=== PATIENT | female | born 1970 | race Hispanic/Latino ===

== ENCOUNTER → 2018-08-17 | Outpatient (CLI) | payer BC | END | disposition home or self-care (01) | LOC: SHCH 14:56 | PROVIDERS: ATTEND Internal Medicine Cardiovascular Disease | DX: I47.1 Supraventricular tachycardia (principal) | CPT/HCPCS: 93306 ==

== ENCOUNTER 2018-11-24 05:46 | Observation (INO) | payer BC ==
[2018-11-14 15:18] VITALS: BP 145/85
[2018-11-14 15:40] LABS: BASOPHILS % (AUTO) 0.3 % (0.0-5.0); EOSINOPHILS % (AUTO) 0.7 % (0.0-8.0); HEMATOCRIT 40.5 % (36-48); LYMPHOCYTES % (AUTO) 22.5 % (21.0-51.0); MEAN CORPUSCULAR HEMOGLOBIN 31.5 pg (27.0-33.0); MEAN CORPUSCULAR HGB CONC 34.1 g/dL (32.0-36.0); MEAN CORPUSCULAR VOLUME 92.4 fL (79-99); MONOCYTES % (AUTO) 7.1 % (3.0-13.0); NEUTROPHILS % (AUTO) 69.4 % (40.0-77.0); NUCLEATED RED BLOOD CELLS 0.1 % (0.0-0.19); PLATELET COUNT (AUTO) 238 K/uL (130-400); RED BLOOD CELL COUNT(AUTO) 4.39 MIL/uL (4.00-5.50); RED CELL DISTRIBUTION WIDTH 12.5 % (11.0-15.5); WHITE BLOOD COUNT (AUTO) 9.2 K/uL (4.8-10.8)
[2018-11-14 15:52] LABS: INR 0.92 (0.85-1.15); PARTIAL THROMBOPLASTIN TIME 26.5 SEC (26.3-35.5); PROTHROMBIN TIME 9.7 SEC (9.6-11.6)
--- NOTE | 2018-11-14 15:58 | NUR ---
PROCEDURE RESCHEDULED PATIENT UNAWARE THAT SHE WAS SUPPOSE TO HOLD CARDIZEM FOR 4 DAYS PRIOR TO PROCEDURE. PATIENT STATED THAT SHE TOOK CARDIZEM YESTERDAY 11/13/[address] BAUER MADE AWARE AND PROCEDURE WAS RESCHEDULED PER THAD.
[2018-11-22 12:11] LABS: CREATININE 0.8 mg/dL (0.5-1.5); POTASSIUM 3.9 mmol/L (3.5-5.1)
[2018-11-22 12:13] LABS: INR 0.94 (0.85-1.15); PARTIAL THROMBOPLASTIN TIME 27.5 SEC (26.3-35.5); PROTHROMBIN TIME 9.9 SEC (9.6-11.6)
[2018-11-22 12:15] LABS: BASOPHILS % (AUTO) 0.3 % (0.0-5.0); EOSINOPHILS % (AUTO) 0.5 % (0.0-8.0); HEMATOCRIT 40.7 % (36-48); LYMPHOCYTES % (AUTO) 22.4 % (21.0-51.0); MEAN CORPUSCULAR HEMOGLOBIN 31.7 pg (27.0-33.0); MEAN CORPUSCULAR HGB CONC 34.2 g/dL (32.0-36.0); MEAN CORPUSCULAR VOLUME 92.7 fL (79-99); MONOCYTES % (AUTO) 4.3 % (3.0-13.0); NEUTROPHILS % (AUTO) 72.5 % (40.0-77.0); PLATELET COUNT (AUTO) 226 K/uL (130-400); RED BLOOD CELL COUNT(AUTO) 4.39 MIL/uL (4.00-5.50); WHITE BLOOD COUNT (AUTO) 7.1 K/uL (4.8-10.8)
[2018-11-22 12:20] VITALS: BP 155/86
[~2018-11-24] VITALS: Ht 162.6 cm; Wt 90.3 kg
[2018-11-24] VITALS (12 sets, daily range): BP systolic 114–147; BP diastolic 66–99
[~2018-11-24 05:46] MED LIST: DILT120C92 PO; SODIUM CHLORIDE 0.9% 1000ML 1,000 ML IV SCH; vitamin D3
[2018-11-24] MEDS ORDERED: SODIUM CHLORIDE 0.9% 1000ML 1,000 ML IV ONE (06:05)
[2018-11-24] MEDS ORDERED: HEPARIN SODIUM 1000UNIT/ML 10ML VIAL ONE (07:27)
[2018-11-24] MEDS ORDERED: LIDOCAINE HCL 2% 20ML ONE ×2 (07:27→07:50)
[2018-11-24] MEDS ORDERED: ISOPROTERENOL HCL 0.2 MG/ML AMP/VIAL/BAG ONE ×2 (08:00→09:38)
[2018-11-24] MEDS ORDERED: MEPERIDINE-PF 25 MG/ML SYG ONE ×2 (08:07→08:29)
[2018-11-24] MEDS ORDERED: MIDAZOLAM HCL 1 MG/ML 2ML VIAL ONE ×2 (08:07→08:29)
[2018-11-24] MEDS ORDERED: ADENOSINE 3 MG/ML 2ML VIAL IV ONE ×4 (08:10→09:57)
[2018-11-24] MEDS ORDERED: ACETAMINOPHEN 325 MG TAB PO PRN (11:15)
[2018-11-24] MEDS ORDERED: ACETAMINOPHEN-CODEINE 300/30MG TAB PO PRN (11:15)
--- NOTE | 2018-11-24 11:20 | NUR ---
ARRIVAL PT RECEIVED FROM [facility]IC[facility] VIA BED. S/P CARDIAC ABLATION-SUCCESSFUL. BILATERAL GROIN DSG DRY & INTACT. BILATERAL PUNCTURE SITE SOFT, NON-TENDER. NO BLEEDING, NO HEMATOMA. (+) BILATERAL PEDAL PULSES. BLE PINK & WARM TO TOUCH. PT TO MAINTAIN BR X 4 HRS. DENIES INCISIONAL PAIN. A/O X 3. NO SOB. NO DISTRESS NOTED. DENIES N/V. ORIENTED TO . BED @ LOWEST LEVEL. SIDE RAILS UP X 4. INSTRUCTED TO CALL FOR ASSISTANCE. CALL INESSA W/IN REACH.
--- NOTE | 2018-11-24 14:30 | NUR ---
STATUS 4 HR BEDREST COMPLETE. BILATERAL GROIN DSG DRY & INTACT. NO BLEEDING, NO HEMATOMA NOTED. (+) BILATERAL PEDAL PULSES. BLE PINK & WARM TO TOUCH. DENIES INCISIONAL PAIN. DENIES CHEST PAIN AND /OR PALPITATIONS. PT ASSISTED OOB TO CHAIR. TOLERATED WELL. DENIES LIGHT HEADEDNESS AND/OR DIZZINESS. INSTRUCTED TO CALL FOR ASSISTANCE. CALL INESSA W/IN REACH.
[2018-11-25 03:00] VITALS: BP 116/71
[2018-11-25 07:00] VITALS: BP 129/98
--- NOTE | 2018-11-25 07:30 | NUR ---
AM ASSESSMENT PT LAYING IN BED, WATCHING TV. A/O X 3. NO SOB. NO DISTRESS NOTED. DENIES CHEST PAIN OR DISCOMFORT. DENIES PALPITATIONS. DENIES INCISIONAL PAIN. TELE: SR 70-80s. DENIES N/V AND/OR DIARRHEA. BILATERAL GROIN SITES SOFT, NON-TENDER. BILATERAL DSG DRY & INTACT. NO BLEEDING, NO HEMATOMA NOTED. (+) BILATERAL PEDAL PULSES. BLE PINK & WARM TO TOUCH. UP AD MELIDA. INSTRUCTED TO CALL FOR ASSISTANCE. CALL INESSA W/IN REACH.
--- NOTE | 2018-11-25 10:05 | NUR ---
DISCHARGE VERBAL & WRITTEN DISCHARGE INSTRUCTIONS REVIEWED & GIVEN TO PT. QUESTIONS ENCOURAGED & CLARIFIED. PROPER CARE & ACTIVITY AFTER CARDIAC ABLATION REVIEWED. NO NEW PRESCRIBED MEDICATIONS. PT TO STOP TAKING DILTIAZEM, PT AWARE. TELE BRANDI & IV DISCONTINUED EARLIER. PT & SON TO GATHER PERSONAL BELONGINGS. WILL NOTIFY STAFF WHEN READY TO BE TAKEN TO PRIVATE VEHICLE.
--- NOTE | 2018-11-25 10:10 | NUR ---
DISCHARGE PT AMBULATED TO PRIVATE VEHICLE ACCOMPANIED BY MYSELF, Francisca DUKES RN, AND SON. TOLERATED AMBULATION WELL, NO DISTRESS NOTED.
== END 2018-11-25 10:10 | disposition home or self-care (01) ==
LOC: DAH 05:46 → DAHIP 05:47 → 2DH 11:26
PROVIDERS: ADMIT Internal Medicine; ATTEND Internal Medicine
DX: I47.1 Supraventricular tachycardia (principal); E03.9 Hypothyroidism, unspecified; F17.210 Nicotine dependence, cigarettes, uncomplicated; Z90.710 Acquired absence of both cervix and uterus; Z79.899 Other long term (current) drug therapy; Z82.49 Family history of ischemic heart disease and other diseases of the circulatory system; Z79.01 Long term (current) use of anticoagulants
CPT/HCPCS: 36415 ×2; 80048 ×2; 84703 ×2; 85025 ×2; 85610 ×2; 85730 ×2; 93005 ×2; 93613; 93621; 93623; 93653; A4649; C1730 ×5; C1732; C1894 ×5; G0378 ×28; J0153 ×4; J1644 ×2; J2175; J2250; J3490 ×3; J7030; 99156; 99157

== ENCOUNTER 2024-05-06 03:47 | Emergency (ER) | payer BC ==
[~2024-05-06] VITALS: Ht 160 cm; Wt 77.1 kg
[~2024-05-06 03:47] MED LIST changes: +DILT120C78 PO; -DILT120C92 PO; -SODIUM CHLORIDE 0.9% 1000ML 1,000 ML IV SCH
--- NOTE | 2024-05-06 03:52 | NUR ---
UA CUP PROVIDED
[2024-05-06 04:11] LABS: BASOPHILS # (AUTO) 0.03 K/uL (0.00-0.20); BASOPHILS % (AUTO) 0.3 % (0.0-5.0); EOSINOPHILS # (AUTO) 0.11 K/uL (0.00-0.70); EOSINOPHILS % (AUTO) 1.1 % (0.0-8.0); HEMATOCRIT 42.4 % (36-48); IMMATURE GRANULOCYTE ABSOLUTE 0.05 K/uL (0-1); LYMPHOCYTES # (AUTO) 1.9 K/uL (1.0-4.8); LYMPHOCYTES % (AUTO) 18.7 % (21.0-51.0); MEAN CORPUSCULAR HEMOGLOBIN 31.4 pg (27.0-33.0); MEAN CORPUSCULAR VOLUME 92.6 fL (79-99); MONOCYTES # (AUTO) 0.6 K/uL (0.1-1.0); MONOCYTES % (AUTO) 6.3 % (3.0-13.0); NEUTROPHILS # (AUTO) 7.3 K/uL (1.8-7.7); NEUTROPHILS % (AUTO) 73.1 % (40.0-77.0); PLATELET COUNT (AUTO) 293 K/uL (130-400); RED BLOOD CELL COUNT(AUTO) 4.58 MIL/uL (4.00-5.50); RED CELL DISTRIBUTION WIDTH 11.8 % (11.0-15.5)
--- NOTE | 2024-05-06 04:13 | ERN ---
General Chief Complaint: Flank Pain Stated Complaint: LEFT FLANK PAIN Time Seen by MD: 03:50 History of Present Illness Initial Comments Mrs Patricia is a pleasant 54-year-old female who comes in with a chief complaint of left-sided flank pain. Patient reports that she has a history of kidney stones. Patient reports his pain is moderate to severe. She reports the pain that radiates to her left groin. Patient denies any fevers chills lightheadedness dizziness double vision blurry vision chest pain. Patient reports he does have nausea and vomiting. Allergies: Coded Allergies: No Known Drug Allergies (Verified Allergy, Unknown, 11/14/18) Home Meds Reported Medications [vitamin D3] No Conflict Check 11/14/18 Diltiazem HCl (Diltiazem ER) 120 Mg Capsule.er, 120 MG PO DAILY, CAP 11/14/18 Past Medical History Past Medical History: Kidney Stone Past Surgical History: Appendectomy, Hysterectomy ROS Dictation Constitutional: Negative for fever,chills, and weight loss Eyes: Negative for injury, pain,redness, and discharge ENT: Negative for injury,pain or swelling Cardiovascular: Negative for chest pain, palpitations, and edema Respiratory: Negative for shortness of breath, cough, and wheezing, Abdomen/GI: Positive for nausea vomiting and abdominal pain Back: Negative for injury and pain : Negative for injury, bleeding and discharge MS/Extremity: Negative for injury and deformity Skin: Negative for rash, and discoloration Neuro: Negative for headache, weakness, numbness, tingling, and seizure Psych: Negative for suicide ideation, homicidal ideation, and hallucinations Physical Exam Physical Exam Dictation General: Uncomfortable Head/Face: Normocephalic, atraumatic Eyes: PERRL, EOMI, vision at baseline ENT: oral cavity clear Neck: Trachea midline, supple Cardiovascular: RRR, normal S1/S2, No MRGs, no JVD Respiratory: CTAB, no respiratory distress, No rales or wheezes Abdomen: Pain with palpation in the left lower quadrant. Skin: Warm, dry, normal turgor, no rash MS/Extremity: Pulses equal, no cyanosis, neurovascular intact, FROM Neuro: COAx4, GCS 15 Results Laboratory and Microbiology Lab and Micro Result Laboratory Tests Test 05/06/24 04:03 05/06/24 05:20 White Blood Count 10.0 K/uL (4.8-10.8) Red Blood Count 4.58 MIL/uL (4.00-5.50) Hemoglobin 14.4 g/dL (12.0-16.0) Hematocrit 42.4 % (36-48) Mean Corpuscular Volume 92.6 fL (79-99) Mean Corpuscular Hemoglobin 31.4 pg (27.0-33.0) Mean Corpuscular Hemoglobin Concent 34.0 g/dL (32.0-36.0) Red Cell Distribution Width 11.8 % (11.0-15.5) Platelet Count 293 K/uL (130-400) Mean Platelet Volume 10.9 fL (7.5-10.5) H Immature Granulocyte % (Auto) 0.5 % (0-1) Neutrophils (%) (Auto) 73.1 % (40.0-77.0) Lymphocytes (%) (Auto) 18.7 % (21.0-51.0) L Monocytes (%) (Auto) 6.3 % (3.0-13.0) Eosinophils (%) (Auto) 1.1 % (0.0-8.0) Basophils (%) (Auto) 0.3 % (0.0-5.0) Neutrophils # (Auto) 7.3 K/uL (1.8-7.7) Lymphocytes # (Auto) 1.9 K/uL (1.0-4.8) Monocytes # (Auto) 0.6 K/uL (0.1-1.0) Eosinophils # (Auto) 0.11 K/uL (0.00-0.70) Basophils # (Auto) 0.03 K/uL (0.00-0.20) Absolute Immature Granulocyte (auto 0.05 K/uL (0-1) Nucleated Red Blood Cells 0.0 % (0.0-0.19) Sodium Level 140 mmol/L (136-145) Potassium Level 4.2 mmol/L (3.5-5.1) Chloride Level 105 mmol/L (101-111) Carbon Dioxide Level 26 mmol/L (21-32) Blood Urea Nitrogen 14 mg/dL (7-18) Creatinine 1.1 mg/dL (0.5-1.0) H Glomerular Filtration Rate Calc 60 mL/min (>90) Random Glucose 109 mg/dL (70-105) H Total Calcium 8.9 mg/dL (8.5-10.1) Amylase Level 62 U/L (25-115) Lipase 91 U/L (16-77) H Urine Color COLORLESS (YELLOW) Urine Appearance CLEAR (CLEAR) Urine pH 6.5 (5.0-8.0) Urine Specific [place] 1.028 (1.001-1.031) Urine Protein NEGATIVE mg/dL (NEGATIVE) Urine Glucose (UA) NEGATIVE mg/dL (NEGATIVE) Urine Ketones NEGATIVE mg/dL (NEGATIVE) Urine Occult Blood LARGE (NEGATIVE) H Urine Nitrate NEGATIVE (NEGATIVE) Urine Bilirubin NEGATIVE mg/dL (NEGATIVE) Urine Urobilinogen 0.2 mg/dL (0.2-1.0) Urine Leukocyte Esterase NEGATIVE Sandra/uL Urine RBC TNTC /HPF (0-1) H Urine WBC 11-25 /HPF (0-1) H Urine Bacteria RARE /HPF (None Seen) MDM Patient appears to have a nonobstructing 10 mm stone in the right and a 5 x 3 mm stone in the left UPJ. Patient does have some moderate left-sided hydronephrosis. Urine does not show any action MDM: Differential diagnosis: Renal calculus Rationale: Tests considered and ordered secondary to shared decision making include: Previous outside records reviewed: Old ER visits. Risk of complication and/or morbidity or mortality of patient management: None Medications-Per medication reconciliation Need for hospitalization: Patient does not meet criteria for hospitalization. Need for emergency major/minor surgery: No There are no social concerns with this patient. Prescription drug management Prescriptions will include symptomatic care Patient's prior external medical records from other ER visits were reviewed by me as indicated. Prior testing and results from previous visits were reviewed. Prior tests were taken into account with medical decision making and resource utilization, independent historian/historians were used to obtain complete medical history. I independently interpreted the test that were performed, results were reviewed by me and considered findings on radiology if ordered. Medical management and examination interpretation discussions were had by me with other qualified healthcare professionals as indicated for the patient's care. ED Course Orders Procedure Category Date Status Time Cbc With Differential LAB 05/06/24 Complete 03:53 Basic Metabolic Panel LAB 05/06/24 Complete 03:53 Urinalysis Profile LAB 05/06/24 Complete 03:53 Amylase LAB 05/06/24 Complete 04:08 Ct Abdomen/Pelvis CT 05/06/24 Taken W/Contrast 04:08 Lactated Ringers PHA 05/06/24 Complete 1000ml (Lactated 04:30 Morphine 4mg Syg PHA 05/06/24 Complete (Morphine 4mg Syg) 04:30 Ondansetron 4mg Inj PHA 05/06/24 Complete (Zofran 4mg Inj) 04:30 Lipase LAB 05/06/24 Complete 04:08 Iohexol (Omnipaque) PHA 05/06/24 Complete 04:41 0.9%Nacl 1000ml (Ns PHA 05/06/24 Complete 1000ml) 06:00 0.9%Nacl 1000ml (Ns PHA 05/06/24 Complete 1000ml) 05:50 Culture Urine RUBI 05/06/24 In Process 05:53 Current Medications Medications (Trade) Dose Ordered Sig/Xenia Route PRN Reason Start Time Stop Time Status Last Admin Dose Admin Iohexol (Omnipaque) 75 ml STK-MED ONCE IV 05/06/24 04:41 05/06/24 04:46 DC Lactated Ringer's 1,000 ml @ 0 mls/hr ONCE ONCE IV 05/06/24 04:30 05/06/24 04:31 DC 05/06/24 04:30 Morphine Sulfate (morPHINE 4MG SYG) 4 mg ONCE ONCE IVP 05/06/24 04:30 05/06/24 04:31 DC 05/06/24 04:29 Ondansetron HCl (zoFRAN 4MG INJ) 4 mg ONCE ONCE IVP 05/06/24 04:30 05/06/24 04:31 DC 05/06/24 04:29 Sodium Chloride 1,000 ml @ 0 mls/hr Q0M ONCE IV 05/06/24 06:00 05/06/24 06:01 DC 05/06/24 05:55 Sodium Chloride 1,000 ml @ As Directed STK-MED ONCE IV 05/06/24 05:50 05/06/24 05:51 DC Vital Signs Date Time Temp Pulse Resp B/P (MAP) Pulse Ox O2 Delivery O2 Flow Rate FiO2 05/06/24 05:55 75 18 156/86 98 Room Air* 0 21 05/06/24 04:33 97.3 79 20 179/95 97 Room Air* 0 21 05/06/24 03:48 97.2 101 20 190/116 100 Room Air DX & DISP Disposition: Discharge Departure Impression: Primary Impression: Renal stone Condition: Stable Scripts Tramadol Hcl (Tramadol HCl) 50 Mg Tablet 50 MG PO Q6H, #28 TAB Prov: DALTON SEGURA MD 05/06/24 Tamsulosin HCl (Flomax) 0.4 Mg Cap.er.24h 0.4 MG PO DAILY for 30 Days, #[address] CAPSULE.DR Prov: DALTON SEGURA MD 05/06/24 Additional Instructions: Please drink plenty of fluids anywhere between 1-2 L a day to help expel your stone. Please take your medications as prescribed. Please follow up with the primary care physician in the next 1-7 days for continuance of care. If pain worsens please come back to emergency department Referrals: BENITA COLLINS (PCP) DALTON SEGURA MD May 06, 2024 04:13
[2024-05-06] MEDS: morPHINE 4 MG SYG IVP ONE (04:29)
[2024-05-06] MEDS: ondanSETRON 4MG INJ IVP ONE (04:29)
[2024-05-06] MEDS: LACTATED RINGERS 1000ML 1,000 ML IV ONE (04:30)
[2024-05-06 04:37] LABS: CREATININE 1.1 mg/dL (0.5-1.0); POTASSIUM 4.2 mmol/L (3.5-5.1)
[2024-05-06] MEDS ORDERED: IOHEXOL-350 75 ML VIAL IV ONE (04:41)
[2024-05-06 05:16] LABS: AMYLASE 62 U/L (25-115)
[2024-05-06 05:32] LABS: APPEARANCE,URINE CLEAR (CLEAR); BILIRUBIN,URINE NEGATIVE (NEGATIVE); COLOR,URINE COLORLESS (YELLOW); GLUCOSE, URINE (UA) NEGATIVE (NEGATIVE); KETONES,URINE NEGATIVE (NEGATIVE); LEUKOCYTE ESTERASE ,URINE NEGATIVE Leu/uL (NEGATIVE); NITRATE,URINE NEGATIVE (NEGATIVE); OCCULT BLOOD,URINE LARGE (NEGATIVE); PH,URINE 6.5 (5.0-8.0); PROTEIN,URINE NEGATIVE (NEGATIVE); UROBILINOGEN,URINE 0.2 mg/dL (0.2-1.0)
[2024-05-06 05:36] LABS: ADD UA MICROSCOPIC YES
[2024-05-06 05:52] LABS: BACTERIA,URINE RARE /HPF (None Seen); MUCUS,URINE RARE LPF (None Seen); RBC,URINE TNTC /HPF (0-1)
[2024-05-06] MEDS: 0.9%NACL 1000ML 1,000 ML IV ONE ×2 (05:55)
[2024-05-06] MEDS ORDERED: TRAM50TA4 PO (06:23)
[2024-05-06] MEDS ORDERED: TAMS-1 PO (06:23)
[2024-05-06] MEDS: tamSULOsin HCL 0.4 MG CAP.ER.24H PO ONE (06:24)
[2024-05-06 07:00] VITALS: BP 142/80; PULSE 72; RESP 18; TEMP 97.6; O2SAT 100
--- NOTE | 2024-05-06 08:24 | HMCIMG ---
CT ABDOMEN/PELVIS W/CONTRAST REASON: Abdominal Pain COMPARISON: None. TECHNIQUE: Images are obtained from lung bases to symphysis pubis following IV contrast, 75 cc Omnipaque 350. FINDINGS: Lung bases are clear. There are no focal liver lesions. The liver does not appear enlarged.. Spleen and pancreas appear unremarkable. The gallbladder appears normal as well. There is a 5 mm stone in the proximal left ureter just past the ureteropelvic junction. There is mild to moderate left hydronephrosis. There is an additional 3 mm nonobstructing stone in the lower pole calyx on the left, there is a 12 mm stone in a middle pole calyx on the right. There is no right-sided hydronephrosis. There is no mass in either kidney. Stomach is distended with air and fluid. There is mild fluid distention of large and small bowel loops, present throughout, no evidence of transition zone. Findings are nonspecific, often a reflection of gastroenteritis or mild ileus. There is minimal sigmoid diverticulosis without evidence of diverticulitis. Bowel loops appear otherwise unremarkable. Bowel loops appear unremarkable. The appendix was not separately identified. There is no evidence of free fluid or intraperitoneal air. There are no focal fluid collections. Aorta and retroperitoneum appear normal as do pelvic soft tissue structures. The anterior abdominal wall is intact. Osseous structures appear unremarkable. IMPRESSION: 1. 5 mm stone in the proximal left ureter with mild to moderate left hydronephrosis. 2. Additional nonobstructing stones in each kidney, largest 12 mm lower pole calyx of the right kidney. 3. Mild nonspecific fluid-filled prominence of large and small bowel loops which may represent gastroenteritis or mild ileus. CT was performed with one or more following dose reduction techniques: automated exposure control, adjustment of the mA and kv according to patient's size, or use of a iterative reconstruction technique.
== END 2024-05-06 07:02 | disposition home or self-care (01) ==
LOC: EDH 03:47
DX: N13.2 Hydronephrosis with renal and ureteral calculous obstruction (principal); Z79.899 Other long term (current) drug therapy; Z90.49 Acquired absence of other specified parts of digestive tract; Z90.710 Acquired absence of both cervix and uterus
CPT/HCPCS: 99284; 74177; 96374; 96375; 82150; 80048; 83690; 85025; 87086; 81001; 36415; J7120; J7030; J2405; J2270; Q9967

== ENCOUNTER 2024-10-06 17:31 | Inpatient (IN) | payer BC, OTHER ==
[~2024-10-06] VITALS: Ht 157.5 cm; Wt 70.3 kg
[~2024-10-06 17:31] MED LIST changes: +TAMS-55 PO; +TRAM50TA4 PO
[2024-10-06 18:50] LABS: BASOPHILS # (AUTO) 0.04 K/uL (0.00-0.20); BASOPHILS % (AUTO) 0.3 % (0.0-5.0); EOSINOPHILS # (AUTO) 0.04 K/uL (0.00-0.70); EOSINOPHILS % (AUTO) 0.3 % (0.0-8.0); HEMATOCRIT 42.4 % (36-48); IMMATURE GRANULOCYTE ABSOLUTE 0.04 K/uL (0-1); LYMPHOCYTES # (AUTO) 1.4 K/uL (1.0-4.8); LYMPHOCYTES % (AUTO) 9.4 % (21.0-51.0); MEAN CORPUSCULAR HEMOGLOBIN 31.4 pg (27.0-33.0); MEAN CORPUSCULAR HGB CONC 33.7 g/dL (32.0-36.0); MONOCYTES # (AUTO) 0.7 K/uL (0.1-1.0); MONOCYTES % (AUTO) 4.8 % (3.0-13.0); NEUTROPHILS # (AUTO) 12.1 K/uL (1.8-7.7); NEUTROPHILS % (AUTO) 84.9 % (40.0-77.0); PLATELET COUNT (AUTO) 281 K/uL (130-400); RED BLOOD CELL COUNT(AUTO) 4.56 MIL/uL (4.00-5.50); RED CELL DISTRIBUTION WIDTH 11.8 % (11.0-15.5); WHITE BLOOD COUNT (AUTO) 14.3 K/uL (4.8-10.8)
[2024-10-06 18:51] LABS: APPEARANCE,URINE CLEAR (CLEAR); BILIRUBIN,URINE NEGATIVE (NEGATIVE); COLOR,URINE LIGHT-YELLOW (YELLOW); GLUCOSE, URINE (UA) NEGATIVE (NEGATIVE); KETONES,URINE NEGATIVE (NEGATIVE); LEUKOCYTE ESTERASE ,URINE NEGATIVE Leu/uL (NEGATIVE); NITRATE,URINE NEGATIVE (NEGATIVE); OCCULT BLOOD,URINE LARGE (NEGATIVE); PH,URINE 5.5 (5.0-8.0); PROTEIN,URINE NEGATIVE (NEGATIVE); UROBILINOGEN,URINE 0.2 mg/dL (0.2-1.0)
[2024-10-06 18:53] LABS: ADD UA MICROSCOPIC YES
[2024-10-06 19:01] LABS: CREATININE 1.1 mg/dL (0.5-1.0); POTASSIUM 3.5 mmol/L (3.5-5.1)
[2024-10-06] MEDS: ketOROlac 15MG/ML VIAL (15MG/ML) IV STA (19:02)
[2024-10-06] MEDS: 0.9%NACL 1000ML 1,000 ML IV STA (19:02)
[2024-10-06] MEDS: ondanSETRON 4MG INJ IVP STA (19:02)
[2024-10-06 19:11] LABS: BACTERIA,URINE RARE /HPF (None Seen); MUCUS,URINE RARE LPF (None Seen); SQUAMOUS EPITHELIAL CELL,UR RARE /HPF (0-2)
--- NOTE | 2024-10-06 19:15 | NUR ---
PT WHEELED TO CT VIA STRETCHER
--- NOTE | 2024-10-06 19:36 | NUR ---
BACK FROM CT
--- NOTE | 2024-10-06 19:42 | HMCIMG ---
CT ABDOMEN PELVIS WITHOUT CONTRAST Clinical Information: LEFT FLANK PAIN, HX OF KIDNEY STONES Comparison: CT Dose Index (CTDI): 28.40 mGy Dose Length Product (DLP): 1536.00 total mGy-cm PROTOCOL: Routine noncontrast helical scanning of the abdomen and pelvis was performed at 5mm collimation. Findings: There is a left ureterovesical junction calculus measuring 7 mm causing [id number] hydroureteronephrosis. In addition, there is a second smaller calculus of the left distal ureter measuring approximately 3 mm. The right kidney lower pole collecting system shows a nonobstructing calculus measuring 13 mm. The lung bases are clear. The stomach is unremarkable. It shows no wall thickening. No gross ulceration is seen. It is not overly distended. There are no surrounding inflammatory changes. No wall lesions are identified to suggest cancer. The spleen is unremarkable. It is not enlarged. The pancreas shows normal anatomy. It is not fatty replaced. It shows no lesions. The pancreatic duct is not dilated. The gallbladder is unremarkable. It shows no cholelithiasis. The gallbladder wall is normal in thickness. There is no pericholecystic fluid. The is no acute or chronic inflammation noted. The adrenal glands are unremarkable. There is no enlargement. No lesions are noted. The liver is unremarkable. It shows no focal masses. The appendix is unremarkable. It shows no evidence of inflammation. No appendicolith is seen. The small bowel is unremarkable. There is no evidence of dilatation to suggest obstruction. No evidence of adynamic ileus is seen. There is no small bowel wall thickening to suggest enteritis. The colon is unremarkable. The urinary bladder is unremarkable. There is no wall thickening to suggest tumor or inflammation. There are no intraluminal calculi. There are no diverticula. There is no evidence of chronic bladder outlet obstruction. There is no evidence of urinary bladder distention to suggest urinary retention. The other pelvic structures are unremarkable. The bony and vascular structures are unremarkable for the patient's age. IMPRESSION: Urinary tract calculus causing obstruction. This study was performed using dose reduction techniques to include automated exposure control and/or adjustment of the mA and/or kV according to patient size.
--- NOTE | 2024-10-06 20:30 | ERN ---
ED Note History of Present Illness Stated Complaint: LEFT FLANK PAIN Chief Complaint: Flank Pain Time Seen by MD: 17:32 Time Seen by Midlevel: 17:36 Dictation: 54-YEAR-OLD FEMALE WITH A HISTORY OF KIDNEY STONES COMING IN COMPLAINING OF LEFT FLANK PAIN RADIATING TO HER LEFT LOWER QUADRANT ALL THE WAY IT ANTERIOR VAGINAL AREA. PATIENT STATES SHE KNOWS TRICKLING URINE NOT HER USUAL OUTPUT, BY HOWEVER DENIES ANY HEMATURIA. DENIES HAVING ANY FEVERS, NAUSEA VOMITING DIARRHEA. Allergies: Coded Allergies: No Known Drug Allergies (Verified Allergy, Unknown, 11/14/18) Home Meds Active Scripts Tramadol Hcl (Tramadol HCl) 50 Mg Tablet, 50 MG PO Q6H, #28 TAB Prov:DALTON SEGURA MD 05/06/24 Tamsulosin HCl (Flomax) 0.4 Mg Cap.er.24h, 0.4 MG PO DAILY for 30 Days, #30 CAPSULE.DR Prov:DALTON SEGURA MD 05/06/24 Reported Medications Cholecalciferol (Vitamin D3) (Vitamin D3) 125 Mcg (5000 Unit) Capsule, 1 CAP PO DAILY for 30 Days, #30 CAP 0 Refills 10/06/24 Levothyroxine Sodium (Levothyroxine) 50 Mcg Capsule, 1 CAP PO DAILY for 30 Days, #30 CAP 0 Refills 10/06/24 [vitamin D3] No Conflict Check 11/14/18 Diltiazem HCl (Diltiazem ER) 120 Mg Capsule.er, 120 MG PO DAILY, CAP 11/14/18 Past Medical History Past Medical History: Hypothyroid, Kidney Stone Additional Past Medical Hx: HYDRONEPHROSIS Surgical History: Appendectomy, Hysterectomy Review of System Dictation CONSTITUTIONAL: NEGATIVE FOR FEVER,CHILLS, AND WEIGHT LOSS EYES: NEGATIVE FOR INJURY, PAIN,REDNESS, AND DISCHARGE ENT: NEGATIVE FOR INJURY,PAIN OR SWELLING CARDIOVASCULAR: NEGATIVE FOR CHEST PAIN, PALPITATIONS, AND EDEMA RESPIRATORY: NEGATIVE FOR SHORTNESS OF BREATH, COUGH, AND WHEEZING, ABDOMEN/GI: NEGATIVE FOR ABDOMINAL PAIN, NAUSEA, VOMITING, DIARRHEA, AND CONSTIPATION BACK: NEGATIVE FOR INJURY AND PAIN : NEGATIVE FOR INJURY, BLEEDING AND DISCHARGE, COMPLAINING OF LEFT FLANK PAIN AND DECREASED URINE OUTPUT MS/EXTREMITY: NEGATIVE FOR INJURY AND DEFORMITY SKIN: NEGATIVE FOR RASH, AND DISCOLORATION NEURO: NEGATIVE FOR HEADACHE, WEAKNESS, NUMBNESS, TINGLING, AND SEIZURE PSYCH: NEGATIVE FOR SUICIDE IDEATION, HOMICIDAL IDEATION, AND HALLUCINATIONS Review of Systems: was completed Initial Vital Sign VS Vital Signs Date Time Temp Pulse Resp B/P (MAP) Pulse Ox O2 Delivery O2 Flow Rate FiO2 10/06/24 17:31 97.5 83 20 158/104 100 Room Air 0 10/06/24 19:13 21 Physical Exam Dictation GENERAL: AWAKE, ALERT, NAD HEAD/FACE: NORMOCEPHALIC, ATRAUMATIC EYES: PERRL, EOMI, VISION AT BASELINE ENT: ORAL CAVITY CLEAR, TMS CLEAR, NO SIGNS OF INFECTION NECK: TRACHEA MIDLINE, SUPPLE, NO NUCHAL RIGIDITY CARDIOVASCULAR: RRR, NORMAL S1/S2, NO MRGS, NO JVD RESPIRATORY: CTAB, NO RESPIRATORY DISTRESS, NO RALES OR WHEEZES ABDOMEN: SOFT, NON-TENDER, NON-DISTENDED, NORMAL BOWEL SOUNDS, NO GUARDING OR REBOUND. LEFT CVA TENDERNESS SKIN: WARM, DRY, NORMAL TURGOR, NO RASH MS/EXTREMITY: PULSES EQUAL, NO CYANOSIS, NEUROVASCULAR INTACT, FROM NEURO: COAX4, GCS 15, STRENGTH 5/5, CN 2-12 INTACT, NORMAL CEREBELLAR EXAM, NORMAL GAIT, PSYCH: NORMAL BEHAVIOR, MOOD, AND AFFECT NORMAL Results (Laboratory/Radiology) Laboratory/Radiology Laboratory Tests Test 10/06/24 18:30 10/06/24 18:32 White Blood Count 14.3 K/uL (4.8-10.8) H Red Blood Count 4.56 MIL/uL (4.00-5.50) Hemoglobin 14.3 g/dL (12.0-16.0) Hematocrit 42.4 % (36-48) Mean Corpuscular Volume 93.0 fL (79-99) Mean Corpuscular Hemoglobin 31.4 pg (27.0-33.0) Mean Corpuscular Hemoglobin Concent 33.7 g/dL (32.0-36.0) Red Cell Distribution Width 11.8 % (11.0-15.5) Platelet Count 281 K/uL (130-400) Mean Platelet Volume 11.2 fL (7.5-10.5) H Immature Granulocyte % (Auto) 0.3 % (0-1) Neutrophils (%) (Auto) 84.9 % (40.0-77.0) H Lymphocytes (%) (Auto) 9.4 % (21.0-51.0) L Monocytes (%) (Auto) 4.8 % (3.0-13.0) Eosinophils (%) (Auto) 0.3 % (0.0-8.0) Basophils (%) (Auto) 0.3 % (0.0-5.0) Neutrophils # (Auto) 12.1 K/uL (1.8-7.7) H Lymphocytes # (Auto) 1.4 K/uL (1.0-4.8) Monocytes # (Auto) 0.7 K/uL (0.1-1.0) Eosinophils # (Auto) 0.04 K/uL (0.00-0.70) Basophils # (Auto) 0.04 K/uL (0.00-0.20) Absolute Immature Granulocyte (auto 0.04 K/uL (0-1) Nucleated Red Blood Cells 0.0 % (0.0-0.19) White Cell Morphology Comment See comments Sodium Level 136 mmol/L (136-145) Potassium Level 3.5 mmol/L (3.5-5.1) Chloride Level 100 mmol/L (101-111) L Carbon Dioxide Level 29 mmol/L (21-32) Blood Urea Nitrogen 16 mg/dL (7-18) Creatinine 1.1 mg/dL (0.5-1.0) H Glomerular Filtration Rate Calc 60 mL/min (>90) Random Glucose 90 mg/dL (70-105) Total Calcium 9.1 mg/dL (8.5-10.1) Urine Color LIGHT-YELLOW (YELLOW) Urine Appearance CLEAR (CLEAR) Urine pH 5.5 (5.0-8.0) Urine Specific [place] 1.006 (1.001-1.031) Urine Protein NEGATIVE mg/dL (NEGATIVE) Urine Glucose (UA) NEGATIVE mg/dL (NEGATIVE) Urine Ketones NEGATIVE mg/dL (NEGATIVE) Urine Occult Blood LARGE (NEGATIVE) H Urine Nitrate NEGATIVE (NEGATIVE) Urine Bilirubin NEGATIVE mg/dL (NEGATIVE) Urine Urobilinogen 0.2 mg/dL (0.2-1.0) Urine Leukocyte Esterase NEGATIVE Sandra/uL Urine RBC 11-25 /HPF (0-1) H Urine WBC 2-5 /HPF (0-1) H Urine Squamous Epithelial Cells RARE /HPF (0-2) Urine Bacteria RARE /HPF (None Seen) Labs Reviewed?: Yes CT Scan Comment: [facility] [address] [place] [address] IMAGING REPORT Signed PATIENT: HILL TORRES MR#: [id number] : 1970 SEX: F AGE: 54 LOCATION: [facility] ORDER 07 STATUS: REG ER REPORT#: [id number] SERVICE 05 REASON: LEFT FLANK PAIN, HX OF KIDNEY STONES ORDERING PHYSICIAN: BOBBI MEJÍA NP PROCEDURE: ABD PEL WO - CT ABDOMEN/PELVIS W/O CONTRAST CT ABDOMEN PELVIS WITHOUT CONTRAST Clinical Information: LEFT FLANK PAIN, HX OF KIDNEY STONES Comparison: CT Dose Index (CTDI): 28.40 mGy Dose Length Product (DLP): 1536.00 total mGy-cm PROTOCOL: Routine noncontrast helical scanning of the abdomen and pelvis was performed at 5mm collimation. Findings: There is a left ureterovesical junction calculus measuring 7 mm causing [id number] hydroureteronephrosis. In addition, there is a second smaller calculus of the left distal ureter measuring approximately 3 mm. The right kidney lower pole collecting system shows a nonobstructing calculus measuring 13 mm. The lung bases are clear. The stomach is unremarkable. It shows no wall thickening. No gross ulceration is seen. It is not overly distended. There are no surrounding inflammatory changes. No wall lesions are identified to suggest cancer. The spleen is unremarkable. It is not enlarged. The pancreas shows normal anatomy. It is not fatty replaced. It shows no lesions. The pancreatic duct is not dilated. The gallbladder is unremarkable. It shows no cholelithiasis. The gallbladder wall is normal in thickness. There is no pericholecystic fluid. The is no acute or chronic inflammation noted. The adrenal glands are unremarkable. There is no enlargement. No lesions are noted. The liver is unremarkable. It shows no focal masses. The appendix is unremarkable. It shows no evidence of inflammation. No appendicolith is seen. The small bowel is unremarkable. There is no evidence of dilatation to suggest obstruction. No evidence of adynamic ileus is seen. There is no small bowel wall thickening to suggest enteritis. The colon is unremarkable. The urinary bladder is unremarkable. There is no wall thickening to suggest tumor or inflammation. There are no intraluminal calculi. There are no diverticula. There is no evidence of chronic bladder outlet obstruction. There is no evidence of urinary bladder distention to suggest urinary retention. The other pelvic structures are unremarkable. The bony and vascular structures are unremarkable for the patient's age. IMPRESSION: Urinary tract calculus causing obstruction. This study was performed using dose reduction techniques to include automated exposure control and/or adjustment of the mA and/or kV according to patient size. DICTATED BY: SULY TURNER MD DATE: 10/06/241931 ELECTRONICALLY SIGNED BY: SULY TURNER MD DATE: 10/06/241941 ED Course ED Course Orders Procedure Category Date Status Time Cbc With Differential LAB 10/06/24 Complete 18:06 Basic Metabolic Panel LAB 10/06/24 Complete 18:06 Urinalysis Profile LAB 10/06/24 Complete 18:06 Ct Abdomen/Pelvis W/O CT 10/06/24 Resulted Contrast 18:06 0.9%Nacl 1000ml (Ns PHA 10/06/24 Complete 1000ml) 18:06 Ondansetron 4mg Inj PHA 10/06/24 Complete (Zofran 4mg Inj) 18:06 Ketorolac PHA 10/06/24 Complete Tromethamine 15mg/Ml 18:06 Lactic Acid LAB 10/06/24 Logged 20:23 Blood Cult RUBI 10/06/24 Logged 20:23 Ceftriaxone 1g Vial PHA 10/06/24 Complete (Rocephine 1g Inj) 20:23 Morphine 2mg Syg PHA 10/06/24 Complete (Morphine 2mg Syg) 20:23 Urology Consult CONPHYSVC 10/06/24 Transmitted 21:03 Admit Orders ADM 10/06/24 Transmitted 21:03 Edm Admit Bridge Order ADM 10/06/24 Transmitted 21:03 Current Medications Medications (Trade) Dose Ordered Sig/Xenia Route PRN Reason Start Time Stop Time Status Last Admin Dose Admin Ceftriaxone Sodium (ROCEphine 1G INJ) 1 gm ONCE STAT IVPB 10/06/24 20:23 10/06/24 20:33 DC 10/06/24 20:41 Ketorolac Tromethamine (toRADol) 15 mg ONCE STAT IV 10/06/24 18:06 10/06/24 18:09 DC 10/06/24 19:02 Morphine Sulfate (morPHINE 2MG SYG) 2 mg ONCE STAT IVP 10/06/24 20:23 10/06/24 20:33 DC 10/06/24 20:41 Ondansetron HCl (zoFRAN 4MG INJ) 4 mg ONCE STAT IVP 10/06/24 18:06 10/06/24 18:09 DC 10/06/24 19:02 Sodium Chloride 1,000 ml @ 1,000 mls/hr Q1H STAT IV 10/06/24 18:06 10/06/24 19:05 DC 10/06/24 19:02 Vital Signs Date Time Temp Pulse Resp B/P (MAP) Pulse Ox O2 Delivery O2 Flow Rate FiO2 10/06/24 20:51 98.1 90 18 135/81 100 Room Air* 0 21 10/06/24 19:36 98.1 78 18 117/62 98 Room Air* 0 21 10/06/24 19:13 98.1 76 18 137/83 98 Room Air* 0 21 10/06/24 17:31 97.5 83 20 158/104 100 Room Air 0 Medical Decision Making MDM MDM: 54-YEAR-OLD FEMALE WITH A HISTORY OF KIDNEY STONES COMING IN COMPLAINING OF LEFT FLANK PAIN RADIATING TO HER LEFT LOWER QUADRANT ALL THE WAY IT ANTERIOR V AGINAL AREA. PATIENT STATES SHE KNOWS TRICKLING URINE NOT HER USUAL OUTPUT, BY HOWEVER DENIES ANY HEMATURIA. DENIES HAVING ANY FEVERS, NAUSEA VOMITING DIARRHEA.CBC SHOWS LEUKOCYTOSIS OF 14, NO ANEMIA, NO THROMBOCYTOPENIA. CHEMISTRY ONLY SHOWS A SLIGHT ELEVATION OF CREATININE OF 1.1. UA SHOWS HEMATURIA. CT SCAN OF THE ABDOMEN SHOWS LEFT URETEROVESICULAR JUNCTION CALCULUS MEASURING 7 MM CAUSING MILD TO MODERATE HYDROURETERONEPHROSIS, 2ND SMALLER COCCYX IN THE LEFT DISTAL URETER MEASURING APPROXIMATELY 3 MM. RIGHT KIDNEY LOWER POLE COLLECTING SYSTEM SHOWS A NONOBSTRUCTING CALCULUS MEASURING 3 MM. LACTIC ACID BLOOD CULTURES INITIATED ALONG WITH ANTIBIOTICS. SPOKE TO MCKINLEY PANTOGRAPH MACHINE OPERATOR FOR HOSPITALIST, OKAY TO ADMIT THE PATIENT. ROUTINE CONSULT ORDER FOR UROLOGIST. DIFFERENTIAL DIAGNOSIS: NEPHROLITHIASIS, PYELONEPHRITIS, URINARY TRACT INFECTIONS, RATIONALE: TESTS CONSIDERED AND ORDERED SECONDARY TO SHARED DECISION MAKING INCLUDE: LABS, ECG AND RADIOLOGY PREVIOUS OUTSIDE RECORDS REVIEWED: OLD ER VISITS. RISK OF COMPLICATION AND/OR MORBIDITY OR MORTALITY OF PATIENT MANAGEMENT: NONE MEDICATIONS-PER MEDICATION RECONCILIATION NEED FOR HOSPITALIZATION: PATIENT DOES MEET CRITERIA FOR HOSPITALIZATION. NEED FOR EMERGENCY MAJOR/MINOR SURGERY: NO THERE ARE NO SOCIAL CONCERNS WITH THIS PATIENT. PRESCRIPTION DRUG MANAGEMENT PRESCRIPTIONS WILL INCLUDE SYMPTOMATIC CARE PATIENT'S PRIOR EXTERNAL MEDICAL RECORDS FROM OTHER ER VISITS WERE REVIEWED BY ME INDICATED. PRIOR TESTING AND RESULTS FROM PREVIOUS VISITS WERE REVIEWED. PRIOR TESTS WERE TAKEN INTO ACCOUNT WITH MEDICAL DECISION MAKING AND RESOURCE UTILIZATION, INDEPENDENT HISTORIAN/HISTORIANS WERE USED TO OBTAIN COMPLETE MEDICAL HISTORY. I INDEPENDENTLY INTERPRETED THE TEST THAT WERE PERFORMED, RESULTS WERE REVIEWED BY ME AND CONSIDERED FINDINGS ON RADIOLOGY IF ORDERED. MEDICAL MANAGEMENT AND EXAMINATION INTERPRETATION DISCUSSIONS WERE HAD BY ME WI TH OTHER QUALIFIED HEALTHCARE PROFESSIONALS INDICATED FOR THE PATIENT'S CARE. DX & DISP Disposition: Inpatient Decision to Admit Date: October 06, 2024 Decision to Admit Time: 21:06 Departure Impression: Primary Impression: Calculus of ureterovesical junction (UVJ) Additional Impressions: Calculus of distal ureter, Flank pain, Leukocytosis, Hematuria Condition: Stable Referrals: BENITA COLLINS (PCP) I have reviewed the case, and I agree with, Diagnosis and Plan BOBBI MEJÍA NP October 06, 2024 20:30
[2024-10-06] MEDS: morPHINE 2 MG SYG IVP STA (20:41)
[2024-10-06] MEDS: cefTRIAXone 1G VIAL IVPB STA (20:41)
[2024-10-06] MEDS ORDERED: CHOL500051 PO (20:54)
[2024-10-06] MEDS ORDERED: LEVO50CA5 PO (20:54)
[2024-10-06] MEDS ORDERED: cefTRIAXone 1G VIAL 1 GM in 0.9%NACL 50ML 50 ML IV SCH (22:30)
[2024-10-06] MEDS ORDERED: acetaMINOPHEN 325 MG TAB PO PRN (22:30)
[2024-10-06] MEDS ORDERED: ondanSETRON 4MG INJ IV PRN (22:30)
--- NOTE | 2024-10-06 22:47 | HP ---
[facility] HISTORY AND PHYSICAL Date of Service: October 06, 2024 Time of Service: 22:18 PCP: Paulino Jerez HISTORY OF PRESENT ILLNESS: This is a 54-year-old female with past medical history of SVT with cardiac ablation, hypothyroidism and kidney stones who present to the ED for complaints of left flank pain radiating to her left lower quadrant all the way to her left labia which started today in the morning associated with chills and nausea.Patient states she has similar symptoms in the past and was seen in this ER facility last April of 2024 and as per patient she was sent home and has not seen a urologist outpatient she said. Seen and examined patient int he ED awake,alert and coherent,appears uncomfortable,continue to complain of left flank pain 5/10 pain level.Patient denies fever but has chills,denies vomiting but has nausea ,denies chest pain,palpitation and shortness of breath.Patient denies dysuria and hematuria. Latest vital signs temperature 98.1�, heart rate 90, blood pressure 135/81 saturation 100% on room air. Labs WBC 14, neutrophils 84, hemoglobin 14, hematocrit 42, platelet count 281. Chloride 100, creatinine 1.1, GFR 60, lactic acid 0.9. Urinalysis significant with large occult blood, urine RBC 11-25, urine WBC 2-5. CT abdomen and pelvis without contrast result revealed urinary tract calculus causing obstruction. While in the ER patient received 1 L NS bolus, Zofran 4 mg IV, Toradol 15 mg IV, Rocephin 1 g IV and morphine 2 mg IV. We will admit patient for further medical management. REVIEW OF SYSTEMS CONSTITUTIONAL: Complaints of chills Denies fevers, night sweats. No unintenti onal weight loss reported. NEUROLOGICAL: Denies headache, amaurosis fugax, motor weakness, sensory de ficit, vertigo/spinning sensation, gait abnormalities, or tremors. ENT: No hearing loss, otalgia, otorrhea, rhinitis, rhinorrhea, hoarseness, or sore throat. CARDIOVASCULAR: Denies any exertional angina, dyspnea on exertion, orthopnea, paroxysmal nocturnal dyspnea, palpitations, life-threatening arrhythmias, claudication. PULMONARY: Denies any shortness of breath, cough, phlegm/sputum, hemoptysis, pleuritic chest pain. SLEEP: Denies morning headaches, daytime somnolence or napping. Denies difficulty falling asleep, staying asleep, waking from sleep. Denies knowledge of snoring. GASTROINTESTINAL: Complains of nausea Denies any type of dysphagia to either liquids or solids. Denies vomiting, pyrosis, early satiety, abdominal pain, diarrhea, constipation, or changes in stool consistency or caliber. Denies coffee-ground emesis, hematemesis, hematochezia, or melanotic stools. GENITOURINARY: Complaints of left flank pain Denies frequency, urgency, nocturia, incontinence (Storage/Irritative symptoms.) Low urinary stream, straining to void, urinary intermittency or hesitancy, splitting of the voiding stream, terminal dribbling. ENDOCRINOLOGIC: Denies polyuria, polydipsia, polyphagia or heat/cold intoler ances. HEMATOLOGIC: Denies thrombophilia/previous clots, or coagulopathy/bleeding disorders. ONCOLOGIC: Denies personal history of malignancy. DERMATOLOGIC: Denies rashes or pruritus. PSYCHIATRIC: Denies any suicidal or homicidal ideation. Denies hallucinations. PAST MEDICAL HISTORY: [ cardiac ablation, hypothyroidism and kidney stones ] PAST SURGICAL HISTORY: [ Cardiac ablation, hysterectomy and appendectomy ] PAST SOCIAL HISTORY: [ Patient lives alone. Patient denies alcohol tobacco and recreational drug use ] FAMILY HISTORY: [ Hypertension, diabetes, cardiovascular disease and cancer ] Coded Allergies: No Known Drug Allergies (Verified Allergy, Unknown, 11/14/18) PHYSICAL EXAM GENERAL APPEARANCE: The patient is awake, alert, and oriented, in no acute cardiopulmonary distress. NEUROLOGICAL: Cranial nerves II-XII grossly intact. Motor is 5/5 in bilateral upper and lower extremities proximal to distal. No sensory deficits. HEENT: Face is symmetric. Pupils are equal and reactive. Extraocular movements are intact. NECK: Supple. No JVD. No thyromegaly. No submental, submandibular, pre-/postauricular, occipital or supraclavicular lymphadenopathy. CHEST: Normal chest expansion. No Telemetry. LUNGS: Absence of any rales, rhonchi or any wheezing. CARDIOVASCULAR: Regular. S1 and S2 normal. No appreciable rubs, murmurs or gallops. ABDOMEN: Soft, nontender, and nondistended. There is no rebound, voluntary guarding, or rigidity. : Deferred. No Villatoro. EXTREMITIES: Non-edematous and not cyanotic. No clubbing. Good capillary refill. SKIN: No skin breakdown. Vital Sign (Last 24 Hours) 10/06/24 20:51 Temp 98.1 Pulse 90 Resp 18 B/P (MAP) 135/81 Pulse Ox 100 O2 Delivery Room Air* O2 Flow Rate 0 FiO2 21 LABS: Laboratory: Test 10/06/24 21:09 10/06/24 18:32 10/06/24 18:30 Range/Units Lactic Acid Level 0.9 0.8-2.5 mmol/L Urine Color LIGHT-YELLOW YELLOW Urine Appearance CLEAR CLEAR Urine pH 5.5 5.0-8.0 Urine Specific [place] 1.006 1.001-1.031 Urine Protein NEGATIVE NEGATIVE mg/dL Urine Glucose (UA) NEGATIVE NEGATIVE mg/dL Urine Ketones NEGATIVE NEGATIVE mg/dL Urine Occult Blood LARGE H NEGATIVE Urine Nitrate NEGATIVE NEGATIVE Urine Bilirubin NEGATIVE NEGATIVE mg/dL Urine Urobilinogen 0.2 0.2-1.0 mg/dL Urine Leukocyte Esterase NEGATIVE NEGATIVE Sandra/uL Urine RBC 11-25 H 0-1 /HPF Urine WBC 2-5 H 0-1 /HPF Urine Squamous Epithelial Cells RARE 0-2 /HPF Urine Bacteria RARE None Seen /HPF White Blood Count 14.3 H 4.8-10.8 K/uL Red Blood Count 4.56 4.00-5.50 MIL/uL Hemoglobin 14.3 12.0-16.0 g/dL Hematocrit 42.4 36-48 % Mean Corpuscular Volume 93.0 79-99 fL Mean Corpuscular Hemoglobin 31.4 27.0-33.0 pg Mean Corpuscular Hemoglobin Concent 33.7 32.0-36.0 g/dL Red Cell Distribution Width 11.8 11.0-15.5 % Platelet Count 281 130-400 K/uL Mean Platelet Volume 11.2 H 7.5-10.5 fL Immature Granulocyte % (Auto) 0.3 0-1 % Neutrophils (%) (Auto) 84.9 H 40.0-77.0 % Lymphocytes (%) (Auto) 9.4 L 21.0-51.0 % Monocytes (%) (Auto) 4.8 3.0-13.0 % Eosinophils (%) (Auto) 0.3 0.0-8.0 % Basophils (%) (Auto) 0.3 0.0-5.0 % Neutrophils # (Auto) 12.1 H 1.8-7.7 K/uL Lymphocytes # (Auto) 1.4 1.0-4.8 K/uL Monocytes # (Auto) 0.7 0.1-1.0 K/uL Eosinophils # (Auto) 0.04 0.00-0.70 K/uL Basophils # (Auto) 0.04 0.00-0.20 K/uL Absolute Immature Granulocyte (auto 0.04 0-1 K/uL Nucleated Red Blood Cells 0.0 0.0-0.19 % White Cell Morphology Comment See comments Sodium Level 136 136-145 mmol/L Potassium Level 3.5 3.5-5.1 mmol/L Chloride Level 100 L 101-111 mmol/L Carbon Dioxide Level 29 21-32 mmol/L Blood Urea Nitrogen 16 7-18 mg/dL Creatinine 1.1 H 0.5-1.0 mg/dL Glomerular Filtration Rate Calc 60 >90 mL/min Random Glucose 90 70-105 mg/dL Total Calcium 9.1 8.5-10.1 mg/dL Current Medications Medications (Trade) Dose Ordered Sig/Xenia Route PRN Reason Start Time Stop Time Status Last Admin Dose Admin Ceftriaxone Sodium (ROCEphine 1G INJ) 1 gm ONCE STAT IVPB 10/06/24 20:23 10/06/24 20:33 DC 10/06/24 20:41 1 GM Ketorolac Tromethamine (toRADol) 15 mg ONCE STAT IV 10/06/24 18:06 10/06/24 18:09 DC 10/06/24 19:02 15 MG Morphine Sulfate (morPHINE 2MG SYG) 2 mg ONCE STAT IVP 10/06/24 20:23 10/06/24 20:33 DC 10/06/24 20:41 2 MG Ondansetron HCl (zoFRAN 4MG INJ) 4 mg ONCE STAT IVP 10/06/24 18:06 10/06/24 18:09 DC 10/06/24 19:02 4 MG Sodium Chloride 1,000 ml @ 1,000 mls/hr Q1H STAT IV 10/06/24 18:06 10/06/24 19:05 DC 10/06/24 19:02 1,000 MLS/HR DIAGNOSTICS / RADIOLOGY: [ ] ASSESSMENT: Obstructive ureterolithiasis per CT POA Suspected urinary tract infection POA Acute leukocytosis POA Hypothyroidism POA History of kidney stone POA PLAN: We will admit patient in medical surgical We will start on regular diet We will start NS @ 75 ml / hr x1 bag and re evaluate We will start patient on Rocephin 1 g IV daily for empiric coverage We will start on Famotidine 20 mg IV daily for GI prophylaxis We will replace electrolytes as needed per protocol We will add prn medication for fever,pain,cough , nausea and vomiting We will reconcile home meds once medlist available We will seek Urology consultation We will request labs in am Further orders to follow depending on above results Case discussed with attending physician and came up with above treatment and plan of care. ADVANCED CARE PLANNING 1. Which of the following were discussed? Hospice Care - No Therapeutic options - Yes Advance Directives - No Other discussions - 2. Discussed with who? Patient 3. Voluntary nature of this service was explained to the patient? Yes 4. Amount of time spent - __20 5. Reviewed by Physician? (if this service was performed by NPP) Yes Patient seen and examined by me. Agree with note by LIVESTOCK SHOWMAN SEE ADDITIONAL ORDERS PER CHART DISCUSSED WITH NURSING STAFF JACKIE SHARMA LIVESTOCK SHOWMAN October 06, 2024 22:47
[2024-10-06] MEDS: 0.9%NACL 1000ML 1,000 ML IV SCH (23:22)
--- NOTE | 2024-10-06 23:33 | NUR ---
sbar given to faye mathews
--- NOTE | 2024-10-06 23:34 | NUR ---
RECEIVED REPORT FROM ED NURSE , AWAITING PATIENT ARRIVAL TO UNIT.
[2024-10-06 23:47] VITALS: BP 120/73; PULSE 69; RESP 19; TEMP 97.8; O2SAT 96
--- NOTE | 2024-10-06 23:47 | NUR ---
NURSE NOTE PATIENT ARRIVED TO UNIT VIA WHEELCHAIR, SELF TRANSFERRED TO BED, EDUCATED ON SAFETY PRECAUTIONS, PLAN OF CARE. VOICED UNDERSTANDING.
[2024-10-07] VITALS (8 sets, daily range): BP systolic 91–130; BP diastolic 52–73; PULSE 69–80; RESP 16–20; TEMP 97.8–98.3; O2SAT 97–99
[2024-10-07] MEDS: HYDROcodone/APAP 5/325 1 TAB TABLET PO PRN (00:22)
[2024-10-07 04:42] LABS: BASOPHILS # (AUTO) 0.02 K/uL (0.00-0.20); BASOPHILS % (AUTO) 0.2 % (0.0-5.0); EOSINOPHILS # (AUTO) 0.08 K/uL (0.00-0.70); EOSINOPHILS % (AUTO) 0.9 % (0.0-8.0); HEMATOCRIT 34.6 % (36-48); IMMATURE GRANULOCYTE ABSOLUTE 0.04 K/uL (0-1); LYMPHOCYTES # (AUTO) 2.3 K/uL (1.0-4.8); LYMPHOCYTES % (AUTO) 24.8 % (21.0-51.0); MEAN CORPUSCULAR HEMOGLOBIN 31.8 pg (27.0-33.0); MEAN CORPUSCULAR VOLUME 91.1 fL (79-99); MONOCYTES # (AUTO) 0.6 K/uL (0.1-1.0); MONOCYTES % (AUTO) 6.7 % (3.0-13.0); NEUTROPHILS # (AUTO) 6.3 K/uL (1.8-7.7); PLATELET COUNT (AUTO) 232 K/uL (130-400); RED CELL DISTRIBUTION WIDTH 11.7 % (11.0-15.5); WHITE BLOOD COUNT (AUTO) 9.3 K/uL (4.8-10.8)
[2024-10-07 05:05] LABS: ALBUMIN 2.8 g/dL (3.5-5.0); BILIRUBIN,TOTAL 0.2 mg/dL (0.2-1.0); CREATININE 0.9 mg/dL (0.5-1.0); MAGNESIUM 1.5 mg/dL (1.80-2.40); POTASSIUM 3.6 mmol/L (3.5-5.1); TOTAL PROTEIN, SERUM 5.6 g/dL (6.0-8.3)
--- NOTE | 2024-10-07 06:16 | NUR ---
NURSE NOTE REPORTED TO LILI SHARMA PATIENT WITH MAG OF 1.5, RECEIVED ORDER FOR COVERAGE. NOTED AND CARRIED OUT.
[2024-10-07] MEDS: levoTHYROxine 50 MCG TABLET PO SCH (06:30)
[2024-10-07] MEDS: MAGNESIUM 2GM PREMIX 50ML 50 ML IV PRN (06:35)
[2024-10-07] MEDS: FAMOTIDINE 20MG VIAL IV SCH (08:16)
--- NOTE | 2024-10-07 12:08 | PN ---
[facility] PROGRESS NOTE Date of Service: October 07, 2024 Time of Service: 12:04 SUBJECTIVE: This is a 54-year-old female with past medical history of SVT with cardiac ablation, hypothyroidism and kidney stones who present to the ED for complaints of left flank pain radiating to her left lower quadrant all the way to her left labia which started today in the morning associated with chills and nausea.Patient states she has similar symptoms in the past and was seen in this ER facility last April of 2024 and as per patient she was sent home and has not seen a urologist outpatient she said. Seen and examined patient int he ED awake,alert and coherent,appears uncomfortable,continue to complain of left flank pain 5/10 pain level.Patient denies fever but has chills,denies vomiting but has nausea ,denies chest pain,palpitation and shortness of breath.Patient denies dysuria and hematuria. Latest vital signs temperature 98.1�, heart rate 90, blood pressure 135/81 saturation 100% on room air. Labs WBC 14, neutrophils 84, hemoglobin 14, hematocrit 42, platelet count 281. Chloride 100, creatinine 1.1, GFR 60, lactic acid 0.9. Urinalysis significant with large occult blood, urine RBC 11-25, urine WBC 2-5. CT abdomen and pelvis without contrast result revealed urinary tract calculus causing obstruction. While in the ER patient received 1 L NS bolus, Zofran 4 mg IV, Toradol 15 mg IV, Rocephin 1 g IV and morphine 2 mg IV. We will admit patient for further medical management. 10/07: Patient was seen and examined this morning at bedside. The patient denies chest pain, shortness of breath, nausea, vomiting, fever, chills. Patients blood pressure is 92/56. Patient reports dizziness, lightheadedness when standing. Urology consult pending. Urology is aware of consult, as per Dr. Adams. We will increased fluid rate to 125mL per hour, and give 500 mL bolus for symptomatic hypotension. We will continue to monitor the patient. Patient continues on Zosyn. REVIEW OF SYSTEMS CONSTITUTIONAL: Complaints of chills Denies fevers, night sweats. No unintentional weight loss reported. NEUROLOGICAL: Denies headache, amaurosis fugax, motor weakness, sensory deficit, vertigo/spinning sensation, gait abnormalities, or tremors. ENT: No hearing loss, otalgia, otorrhea, rhinitis, rhinorrhea, hoarseness, or sore throat. CARDIOVASCULAR: Denies any exertional angina, dyspnea on exertion, orthopnea, paroxysmal nocturnal dyspnea, palpitations, life-threatening arrhythmias, claudication. PULMONARY: Denies any shortness of breath, cough, phlegm/sputum, hemoptysis, pleuritic chest pain. SLEEP: Denies morning headaches, daytime somnolence or napping. Denies difficulty falling asleep, staying asleep, waking from sleep. Denies knowledge of snoring. GASTROINTESTINAL: Complains of nausea Denies any type of dysphagia to either liquids or solids. Denies vomiting, pyrosis, early satiety, abdominal pain, diarrhea, constipation, or changes in stool consistency or caliber. Denies coffee-ground emesis, hematemesis, hematochezia, or melanotic stools. GENITOURINARY: Complaints of left flank pain Denies frequency, urgency, nocturia, incontinence (Storage/Irritative symptoms.) Low urinary stream, straining to void, urinary intermittency or hesitancy, splitting of the voiding stream, terminal dribbling. ENDOCRINOLOGIC: Denies polyuria, polydipsia, polyphagia or heat/cold intolerances. HEMATOLOGIC: Denies thrombophilia/previous clots, or coagulopathy/bleeding disorders. ONCOLOGIC: Denies personal history of malignancy. DERMATOLOGIC: Denies rashes or pruritus. PSYCHIATRIC: Denies any suicidal or homicidal ideation. Denies hallucinations. PHYSICAL EXAM GENERAL APPEARANCE: The patient is awake, alert, and oriented, in no acute cardiopulmonary distress. NEUROLOGICAL: Cranial nerves II-XII grossly intact. Motor is 5/5 in bilateral upper and lower extremities proximal to distal. No sensory deficits. HEENT: Face is symmetric. Pupils are equal and reactive. Extraocular movements are intact. NECK: Supple. No JVD. No thyromegaly. No submental, submandibular, pre- /postauricular, occipital or supraclavicular lymphadenopathy. CHEST: Normal chest expansion. No Telemetry. LUNGS: Absence of any rales, rhonchi or any wheezing. CARDIOVASCULAR: Regular. S1 and S2 normal. No appreciable rubs, murmurs or gallops. ABDOMEN: Soft, nontender, and nondistended. There is no rebound, voluntary guarding, or rigidity. : Deferred. No Villatoro. EXTREMITIES: Non-edematous and not cyanotic. No clubbing. Good capillary refill. SKIN: No skin breakdown. Vital Signs (last 8hr) Date Time Temp Pulse Resp B/P (MAP) Pulse Ox O2 Delivery O2 Flow Rate FiO2 10/07/24 11:34 98.1 73 20 94/52 100 Room Air 10/07/24 11:32 97 Room Air* 0 21 10/07/24 08:09 98.1 70 16 92/56 97 Room Air LABS: Laboratory: Test 10/07/24 04:26 10/06/24 21:09 10/06/24 18:32 10/06/24 18:30 Range/Units White Blood Count 9.3 # 4.8-10.8 K/uL Red Blood Count 3.80 L 4.00-5.50 MIL/uL Hemoglobin 12.1 12.0-16.0 g/dL Hematocrit 34.6 L 36-48 % Mean Corpuscular Volume 91.1 79-99 fL Mean Corpuscular Hemoglobin 31.8 27.0-33.0 pg Mean Corpuscular Hemoglobin Concent 35.0 32.0-36.0 g/dL Red Cell Distribution Width 11.7 11.0-15.5 % Platelet Count 232 130-400 K/uL Mean Platelet Volume 10.8 H 7.5-10.5 fL Immature Granulocyte % (Auto) 0.4 0-1 % Neutrophils (%) (Auto) 67.0 40.0-77.0 % Lymphocytes (%) (Auto) 24.8 21.0-51.0 % Monocytes (%) (Auto) 6.7 3.0-13.0 % Eosinophils (%) (Auto) 0.9 0.0-8.0 % Basophils (%) (Auto) 0.2 0.0-5.0 % Neutrophils # (Auto) 6.3 1.8-7.7 K/uL Lymphocytes # (Auto) 2.3 1.0-4.8 K/uL Monocytes # (Auto) 0.6 0.1-1.0 K/uL Eosinophils # (Auto) 0.08 0.00-0.70 K/uL Basophils # (Auto) 0.02 0.00-0.20 K/uL Absolute Immature Granulocyte (auto 0.04 0-1 K/uL Nucleated Red Blood Cells 0.0 0.0-0.19 % Sodium Level 141 136-145 mmol/L Potassium Level 3.6 3.5-5.1 mmol/L Chloride Level 109 101-111 mmol/L Carbon Dioxide Level 27 21-32 mmol/L Blood Urea Nitrogen 11 7-18 mg/dL Creatinine 0.9 0.5-1.0 mg/dL Glomerular Filtration Rate Calc 77 >90 mL/min Random Glucose 92 70-105 mg/dL Total Calcium 8.1 L 8.5-10.1 mg/dL Magnesium Level 1.50 L 1.80-2.40 mg/dL Total Bilirubin 0.2 0.2-1.0 mg/dL Aspartate Amino Transf (AST/SGOT) 14 10-37 U/L Alanine Aminotransferase (ALT/SGPT) 14 12-78 U/L Alkaline Phosphatase 73 50-136 U/L Total Protein 5.6 L 6.0-8.3 g/dL Albumin 2.8 L 3.5-5.0 g/dL Lactic Acid Level 0.9 0.8-2.5 mmol/L Urine Color LIGHT-YELLOW YELLOW Urine Appearance CLEAR CLEAR Urine pH 5.5 5.0-8.0 Urine Specific [place] 1.006 1.001-1.031 Urine Protein NEGATIVE NEGATIVE mg/dL Urine Glucose (UA) NEGATIVE NEGATIVE mg/dL Urine Ketones NEGATIVE NEGATIVE mg/dL Urine Occult Blood LARGE H NEGATIVE Urine Nitrate NEGATIVE NEGATIVE Urine Bilirubin NEGATIVE NEGATIVE mg/dL Urine Urobilinogen 0.2 0.2-1.0 mg/dL Urine Leukocyte Esterase NEGATIVE NEGATIVE Sandra/uL Urine RBC 11-25 H 0-1 /HPF Urine WBC 2-5 H 0-1 /HPF Urine Squamous Epithelial Cells RARE 0-2 /HPF Urine Bacteria RARE None Seen /HPF White Cell Morphology Comment See comments Current Medications Medications (Trade) Dose Ordered Sig/Xenia Route PRN Reason Start Time Stop Time Status Last Admin Dose Admin Acetaminophen (TYLenol 325MG TAB) 650 mg Q4H PRN PO MILD PAIN (1-3) 10/06/24 22:30 11/05/24 22:29 Acetaminophen (TYLenol 325MG TAB) 650 mg Q6H PRN PO TEMPERATURE GREATER THAN 101.5 10/06/24 22:30 11/05/24 22:29 Acetaminophen/ Hydrocodone Bitart (NORco 5/325MG) 1 tab Q4H PRN PO MODERATE PAIN (4-6) 10/06/24 22:30 10/11/24 22:29 10/07/24 09:25 1 TAB Ceftriaxone Sodium 1 gm/ Sodium Chloride 50 ml @ 100 mls/hr Q24H IV 10/06/24 22:30 10/06/24 22:23 DC Ceftriaxone Sodium (ROCEphine 1G INJ) 1 gm ONCE STAT IVPB 10/06/24 20:23 10/06/24 20:33 DC 10/06/24 20:41 1 GM Ceftriaxone Sodium (ROCEphine 1G INJ) 1 gm Q24H IVPB 10/07/24 21:00 10/17/24 20:59 Famotidine (Pepcid 20mg Vial) 20 mg Q24H IV 10/07/24 09:00 11/06/24 08:59 10/07/24 08:16 20 MG Ketorolac Tromethamine (toRADol) 15 mg ONCE STAT IV 10/06/24 18:06 10/06/24 18:09 DC 10/06/24 19:02 15 MG Levothyroxine Sodium (SYNTHroid 50MCG TAB) 50 mcg SYN PO 10/07/24 06:30 11/06/24 06:29 10/07/24 06:30 50 MCG Magnesium Sulfate 50 ml @ 0 mls/hr PROTOCOL PRN IV PROTOCOL 10/07/24 06:30 11/06/24 06:29 10/07/24 06:35 25 MLS/HR Morphine Sulfate (morPHINE 2MG SYG) 2 mg ONCE STAT IVP 10/06/24 20:23 10/06/24 20:33 DC 10/06/24 20:41 2 MG Ondansetron HCl (zoFRAN 4MG INJ) 4 mg ONCE STAT IVP 10/06/24 18:06 10/06/24 18:09 DC 10/06/24 19:02 4 MG Ondansetron HCl (zoFRAN 4MG INJ) 4 mg Q6H PRN IV NAUSEA/VOMITING 10/06/24 22:30 11/05/24 22:29 Sodium Chloride 1,000 ml @ 75 mls/hr [id number] IV 10/06/24 22:30 11/05/24 22:29 10/07/24 11:42 75 MLS/HR Sodium Chloride 1,000 ml @ 1,000 mls/hr Q1H STAT IV 10/06/24 18:06 10/06/24 19:05 DC 10/06/24 19:02 1,000 MLS/HR DIAGNOSTICS / RADIOLOGY: [facility] [address] [place] [address] IMAGING REPORT Signed PATIENT: HILL TORRES MR#: [id number] : 1970 SEX: F AGE: 54 LOCATION: [facility] ORDER 07 STATUS: REG ER REPORT#: [id number] SERVICE 05 REASON: LEFT FLANK PAIN, HX OF KIDNEY STONES ORDERING PHYSICIAN: BOBBI MEJÍA NP PROCEDURE: ABD PEL WO - CT ABDOMEN/PELVIS W/O CONTRAST CT ABDOMEN PELVIS WITHOUT CONTRAST Clinical Information: LEFT FLANK PAIN, HX OF KIDNEY STONES Comparison: CT Dose Index (CTDI): 28.40 mGy Dose Length Product (DLP): 1536.00 total mGy-cm PROTOCOL: Routine noncontrast helical scanning of the abdomen and pelvis was performed at 5mm collimation. Findings: There is a left ureterovesical junction calculus measuring 7 mm causing [id number] hydroureteronephrosis. In addition, there is a second smaller calculus of the left distal ureter measuring approximately 3 mm. The right kidney lower pole collecting system shows a nonobstructing calculus measuring 13 mm. The lung bases are clear. The stomach is unremarkable. It shows no wall thickening. No gross ulceration is seen. It is not overly distended. There are no surrounding inflammatory changes. No wall lesions are identified to suggest cancer. The spleen is unremarkable. It is not enlarged. The pancreas shows normal anatomy. It is not fatty replaced. It shows no lesions. The pancreatic duct is not dilated. The gallbladder is unremarkable. It shows no cholelithiasis. The gallbladder wall is normal in thickness. There is no pericholecystic fluid. The is no acute or chronic inflammation noted. The adrenal glands are unremarkable. There is no enlargement. No lesions are noted. The liver is unremarkable. It shows no focal masses. The appendix is unremarkable. It shows no evidence of inflammation. No appendicolith is seen. The small bowel is unremarkable. There is no evidence of dilatation to suggest obstruction. No evidence of adynamic ileus is seen. There is no small bowel wall thickening to suggest enteritis. The colon is unremarkable. The urinary bladder is unremarkable. There is no wall thickening to suggest tumor or inflammation. There are no intraluminal calculi. There are no diverticula. There is no evidence of chronic bladder outlet obstruction. There is no evidence of urinary bladder distention to suggest urinary retention. The other pelvic structures are unremarkable. The bony and vascular structures are unremarkable for the patient's age. IMPRESSION: Urinary tract calculus causing obstruction. This study was performed using dose reduction techniques to include automated exposure control and/or adjustment of the mA and/or kV according to patient size. DICTATED BY: SULY TURNER MD DATE: 10/06/241931 ELECTRONICALLY SIGNED BY: SULY TURNER MD DATE: 10/06/241941 ASSESSMENT: Obstructive ureterolithiasis per CT POA Suspected urinary tract infection POA Acute leukocytosis POA Hypothyroidism POA History of kidney stone POA PLAN: Obstructive ureterolithiasis -Patient admitted to medical surgical -NS @ 75 ml / hr x1 bag and re evaluate- Increased to 125 mL/hr. -500 mL bolus once for symptomatic hypotension. -Rocephin 1 g IV daily for empiric coverage -Famotidine for GI prophylaxis -Electrolytes replaced as needed per protocol -Urology consulted- we will appreciate their recommendations. Case discussed with attending physician and came up with above treatment and plan of care. HU VALENZUELA MD October 07, 2024 12:08
[2024-10-07] MEDS: acetaMINOPHEN 325 MG TAB PO PRN (15:04)
[2024-10-07] MEDS: 0.9% NACL 500ML IV.SOLN 500 ML IV ONE (15:06)
--- NOTE | 2024-10-07 18:06 | NUR ---
Urology Consult 0830 Consult called to office [phone] Rodriguez that Dr. Rueda has not yet CB. HS recommending hospitalist call answering service for consultation. Dr. Garay will call for consultation. [address] Rodriguez, Dr. Rueda is aware of consult. [address] Rueda to round.
--- NOTE | 2024-10-07 20:25 | NUR ---
IN TO SEE PATIENT , NEW ORDERS GIVEN FOR FLOMAX GOLYTELY 1/2 BOTTLE AND IVP WITH TOMOGRAPHY. ORDERS NOTED AND CARRIED OUT. PATIENT WAS EDUCATED ON NPO STATUS AFTER MIDNIGHT FOR STUDY. PATIENT VOICED UNDERSTANDING.
[2024-10-07] MEDS: tamSULOsin HCL 0.4 MG CAP.ER.24H PO SCH (20:34)
[2024-10-07] MEDS: cefTRIAXone 1G VIAL IVPB SCH (20:36)
[2024-10-07] MEDS: PEG 3350/NA SULF,BICARB,CL/KCL 4000 ML SOLN PO ONE (21:33)
[2024-10-08] VITALS (7 sets, daily range): BP systolic 115–146; BP diastolic 65–87; PULSE 68–78; RESP 16–22; TEMP 97.8–99; O2SAT 97
--- NOTE | 2024-10-08 00:45 | CONS ---
REQUESTING PHYSICIAN: Dr. Hernandez. REASON FOR CONSULTATION: Flank pain, left side. HISTORY OF PRESENT ILLNESS: The patient is a 54-year-old female who presents to the hospital with left flank pain of one day's duration associated with nausea and dizziness. No fever. No chills. The patient's imaging studies showed an obstructing distal ureteric stone measuring about 7 x 3 mm and a second one of 3 mm in the distal ureter as well as a 12 mm nonobstructing stone on the right side. A consultation with Urology was requested. The patient reports having been seen here for the left ureteric stone, reviewed by my colleague four months ago. She di apparently may have passed the stone there at that time. No intervention, was since pain-free until now. She has not been able to access her urologist thus far. The patient encountered lying in bed comfortably. She has no pain whatsoever at this time, recently received some morphine. She is completely comfortable. The patient has no gross hematuria or dysuria. ALLERGIES: None. CURRENT MEDICATIONS: Include ketorolac, Rocephin, morphine, and Zofran. PAST MEDICAL HISTORY: Significant for hypothyroidism, status post cardiac ablation as well. PAST SURGICAL HISTORY: Hysterectomy as well as appendectomy. FAMILY HISTORY: Negative for kidney stones. 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 No children. She does not smoke or drink. REVIEW OF SYSTEMS: Showed no symptoms of chest pain. Her appetite is good now. No nausea. No vomiting. No constipation. No diarrhea. No headaches, dyspnea, or nosebleeds. No joint pain, joint swelling, limitation of movement, night sweats, fever, chills, or concerns. PHYSICAL EXAMINATION: GENERAL: The patient is a 54-year-old female currently in no distress whatsoever. VITAL SIGNS: Temperature is 98, blood pressure is 120/80 with a pulse of 82. NECK: Has no adenopathy or supraclavicular masses palpable. LUNGS: Lung varghese are clear to auscultation. CARDIAC: Heart sounds are best heard in the fifth intercostal space. ABDOMEN: Soft, nontender. BACK: No CVA tenderness, mild discomfort on the left if any. GENITOURINARY: Deferred. LABORATORY DATA: Reviewed in detail. The patient's white count was 14. Hematocrit was 42. Platelet count was 281. Sodium was 136. Potassium was 3.5. BUN and creatinine are 16 and 1.1. Urinalysis shows yellow clear urine, pH of 5.5. Specific gravity of 1.006. She did have a large amount of blood in the urine, 11-25 RBCs per high power field, a few white cells, and no bacteria. IMAGING STUDIES: Reviewed today include a noncontrast CT scan of the abdomen and pelvis; 12 mm lower pole nonobstructing stone on the right, distal ureteric stone about 3 mm and a second one possibly about 6 mm, cylindrical in configuration. ASSESSMENT: * Left renal colic with a segment of bilateral kidney stones with a right kidney stone and a left distal ureteric stone. * Mild hydronephrosis. * Poor compliance. RECOMMENDATIONS: * She is currently completely pain free. I will recommend a functional study with IVP with tomograms. * If IVP documents high-grade obstruction, proceed with retrograde placement of double-J central nephrostomy tube. * Risks, benefits, and alternatives and potential complications were reviewed with the patient. * The patient is aware that once drainage has been provided to the kidney, secondary procedure in a staged fashion will be necessary for actual stone removal on the left and ultimately on the right as well. Thank you for the opportunity of providing consultation on your patient. TID: [id number] RECEIPT: [id number]
--- NOTE | 2024-10-08 03:28 | NUR ---
PATIENT REQUESTED TO BE OFF FLUIDS VIA IV DUE TO FREQUENT TRIPS TO RESTROOM . EDUCATED ON NEED FOR IV FLUIDS. VERBALIZED UNDERSTANDING. CONTINUES WITH STRAINING OF URINE. NO STONE NOTED.
[2024-10-08 04:16] LABS: BASOPHILS # (AUTO) 0.02 K/uL (0.00-0.20); BASOPHILS % (AUTO) 0.3 % (0.0-5.0); EOSINOPHILS # (AUTO) 0.05 K/uL (0.00-0.70); EOSINOPHILS % (AUTO) 0.8 % (0.0-8.0); IMMATURE GRANULOCYTE ABSOLUTE 0.01 K/uL (0-1); LYMPHOCYTES # (AUTO) 2.4 K/uL (1.0-4.8); LYMPHOCYTES % (AUTO) 40.7 % (21.0-51.0); MEAN CORPUSCULAR HEMOGLOBIN 31.5 pg (27.0-33.0); MEAN CORPUSCULAR VOLUME 92.6 fL (79-99); MONOCYTES # (AUTO) 0.4 K/uL (0.1-1.0); NEUTROPHILS # (AUTO) 3.1 K/uL (1.8-7.7); PLATELET COUNT (AUTO) 210 K/uL (130-400); RED BLOOD CELL COUNT(AUTO) 3.78 MIL/uL (4.00-5.50); RED CELL DISTRIBUTION WIDTH 11.9 % (11.0-15.5)
[2024-10-08 04:44] LABS: ALBUMIN 2.8 g/dL (3.5-5.0); BILIRUBIN,TOTAL 0.2 mg/dL (0.2-1.0); CREATININE 0.9 mg/dL (0.5-1.0); POTASSIUM 4.3 mmol/L (3.5-5.1); TOTAL PROTEIN, SERUM 5.5 g/dL (6.0-8.3)
[2024-10-08 06:08] LABS: ERYTHROCYTE SEDIMENTATION RATE 10 MM/HR (0-30)
--- NOTE | 2024-10-08 09:33 | NUR ---
DCP: HOME Pt currently lives alone. Pt denied any insecurities with food, detention, and/or utilities. Pt does not have any DME, home health, and/or provider services. Pt can complete ADLs independently. PCP are the residents in the [facility] in [place] and uses [facility]. At [place] pt will return home and pt drove her car over. Addendum: 10/08/24 at 0938 by MORGAN LLOYD SS Amended: Links added.
[2024-10-08] MEDS ORDERED: IOHEXOL-350 50ML VIAL IV ONE (09:38)
--- NOTE | 2024-10-08 10:38 | NUR ---
Pt returns from IVP tomography exam this medical writer notifed Dr Tovar. She will be ordering a diet for her and discontouing NPO status.
--- NOTE | 2024-10-08 10:41 | PN ---
[facility] PROGRESS NOTE Date of Service: October 08, 2024 Time of Service: 10:38 SUBJECTIVE: This is a 54-year-old female with past medical history of SVT with cardiac ablation, hypothyroidism and kidney stones who present to the ED for complaints of left flank pain radiating to her left lower quadrant all the way to her left labia which started today in the morning associated with chills and nausea.Patient states she has similar symptoms in the past and was seen in this ER facility last April of 2024 and as per patient she was sent home and has not seen a urologist outpatient she said. Seen and examined patient int he ED awake,alert and coherent,appears uncomfortable,continue to complain of left flank pain 5/10 pain level.Patient denies fever but has chills,denies vomiting but has nausea ,denies chest pain,palpitation and shortness of breath.Patient denies dysuria and hematuria. Latest vital signs temperature 98.1�, heart rate 90, blood pressure 135/81 saturation 100% on room air. Labs WBC 14, neutrophils 84, hemoglobin 14, hematocrit 42, platelet count 281. Chloride 100, creatinine 1.1, GFR 60, lactic acid 0.9. Urinalysis significant with large occult blood, urine RBC 11-25, urine WBC 2-5. CT abdomen and pelvis without contrast result revealed urinary tract calculus causing obstruction. While in the ER patient received 1 L NS bolus, Zofran 4 mg IV, Toradol 15 mg IV, Rocephin 1 g IV and morphine 2 mg IV. We will admit patient for further medical management. 10/07: Patient was seen and examined this morning at bedside. The patient denies chest pain, shortness of breath, nausea, vomiting, fever, chills. Patients blood pressure is 92/56. Patient reports dizziness, lightheadedness when standing. Urology consult pending. Urology is aware of consult, as per Dr. Adams. We will increased fluid rate to 125mL per hour, and give 500 mL bolus for symptomatic hypotension. We will continue to monitor the patient. Patient continues on Zosyn. 10/08: Patient was seen and examined this morning at bedside. The patient denies abdominal pain, chest pain, shortness of breath, nausea, fever, chills. Patients blood pressure has improved today, currently 115/65. The patient was seen by Urologist Dr. Fernandez- A functional study with IVP with tomogram was done today. The patients diet has been advanced to a GI soft diet and we will advance as tolerated. We will continue to follow urology recommendations. REVIEW OF SYSTEMS CONSTITUTIONAL: Complaints of chills Denies fevers, night sweats. No unint entional weight loss reported. NEUROLOGICAL: Denies headache, amaurosis fugax, motor weakness, sensory deficit, vertigo/spinning sensation, gait abnormalities, or tremors. ENT: No hearing loss, otalgia, otorrhea, rhinitis, rhinorrhea, hoarseness, or sore throat. CARDIOVASCULAR: Denies any exertional angina, dyspnea on exertion, orthopnea, paroxysmal nocturnal dyspnea, palpitations, life-threatening arrhythmias, claudication. PULMONARY: Denies any shortness of breath, cough, phlegm/sputum, hemoptysis, pleuritic chest pain. SLEEP: Denies morning headaches, daytime somnolence or napping. Denies difficulty falling asleep, staying asleep, waking from sleep. Denies knowledge of snoring. GASTROINTESTINAL: Complains of nausea Denies any type of dysphagia to either liquids or solids. Denies vomiting, pyrosis, early satiety, abdominal pain, diarrhea, constipation, or changes in stool consistency or caliber. Denies coffee-ground emesis, hematemesis, hematochezia, or melanotic stools. GENITOURINARY: Complaints of left flank pain Denies frequency, urgency, nocturia, incontinence (Storage/Irritative symptoms.) Low urinary stream, straining to void, urinary intermittency or hesitancy, splitting of the voiding stream, terminal dribbling. ENDOCRINOLOGIC: Denies polyuria, polydipsia, polyphagia or heat/cold int olerances. HEMATOLOGIC: Denies thrombophilia/previous clots, or coagulopathy/bleeding disorders. ONCOLOGIC: Denies personal history of malignancy. DERMATOLOGIC: Denies rashes or pruritus. PSYCHIATRIC: Denies any suicidal or homicidal ideation. Denies hallucinations. PHYSICAL EXAM GENERAL APPEARANCE: The patient is awake, alert, and oriented, in no acute cardiopulmonary distress. NEUROLOGICAL: Cranial nerves II-XII grossly intact. Motor is 5/5 in bilateral upper and lower extremities proximal to distal. No sensory deficits. HEENT: Face is symmetric. Pupils are equal and reactive. Extraocular movements are intact. NECK: Supple. No JVD. No thyromegaly. No submental, submandibular, pre- /postauricular, occipital or supraclavicular lymphadenopathy. CHEST: Normal chest expansion. No Telemetry. LUNGS: Absence of any rales, rhonchi or any wheezing. CARDIOVASCULAR: Regular. S1 and S2 normal. No appreciable rubs, murmurs or gallops. ABDOMEN: Soft, nontender, and nondistended. There is no rebound, voluntary guarding, or rigidity. : Deferred. No Villatoro. EXTREMITIES: Non-edematous and not cyanotic. No clubbing. Good capillary refill. SKIN: No skin breakdown. Vital Signs (last 8hr) Date Time Temp Pulse Resp B/P (MAP) Pulse Ox O2 Delivery O2 Flow Rate FiO2 10/08/24 08:00 Room Air* 0 21 10/08/24 08:00 98.8 78 16 131/72 98 Room Air 10/08/24 04:00 98.4 68 17 115/65 97 Room Air LABS: Laboratory: Test 10/08/24 04:08 10/06/24 18:32 10/06/24 18:30 Range/Units White Blood Count 6.0 # 4.8-10.8 K/uL Red Blood Count 3.78 L 4.00-5.50 MIL/uL Hemoglobin 11.9 L 12.0-16.0 g/dL Hematocrit 35.0 L 36-48 % Mean Corpuscular Volume 92.6 79-99 fL Mean Corpuscular Hemoglobin 31.5 27.0-33.0 pg Mean Corpuscular Hemoglobin Concent 34.0 32.0-36.0 g/dL Red Cell Distribution Width 11.9 11.0-15.5 % Platelet Count 210 130-400 K/uL Mean Platelet Volume 10.4 7.5-10.5 fL Immature Granulocyte % (Auto) 0.2 0-1 % Neutrophils (%) (Auto) 51.0 40.0-77.0 % Lymphocytes (%) (Auto) 40.7 21.0-51.0 % Monocytes (%) (Auto) 7.0 3.0-13.0 % Eosinophils (%) (Auto) 0.8 0.0-8.0 % Basophils (%) (Auto) 0.3 0.0-5.0 % Neutrophils # (Auto) 3.1 1.8-7.7 K/uL Lymphocytes # (Auto) 2.4 1.0-4.8 K/uL Monocytes # (Auto) 0.4 0.1-1.0 K/uL Eosinophils # (Auto) 0.05 0.00-0.70 K/uL Basophils # (Auto) 0.02 0.00-0.20 K/uL Absolute Immature Granulocyte (auto 0.01 0-1 K/uL Nucleated Red Blood Cells 0.0 0.0-0.19 % Erythrocyte Sedimentation Rate 10 0-30 MM/HR Sodium Level 146 H 136-145 mmol/L Potassium Level 4.3 3.5-5.1 mmol/L Chloride Level 115 H 101-111 mmol/L Carbon Dioxide Level 26 21-32 mmol/L Blood Urea Nitrogen 9 7-18 mg/dL Creatinine 0.9 0.5-1.0 mg/dL Glomerular Filtration Rate Calc 77 >90 mL/min Random Glucose 83 70-105 mg/dL Lactic Acid Level 0.8 0.8-2.5 mmol/L Total Calcium 8.1 L 8.5-10.1 mg/dL Magnesium Level 2.10 1.80-2.40 mg/dL Total Bilirubin 0.2 0.2-1.0 mg/dL Aspartate Amino Transf (AST/SGOT) 15 10-37 U/L Alanine Aminotransferase (ALT/SGPT) 11 #L 12-78 U/L Alkaline Phosphatase 69 50-136 U/L C-Reactive Protein, Quantitative 0.60 0.5-3.0 mg/L Total Protein 5.5 L 6.0-8.3 g/dL Albumin 2.8 L 3.5-5.0 g/dL Urine Color LIGHT-YELLOW YELLOW Urine Appearance CLEAR CLEAR Urine pH 5.5 5.0-8.0 Urine Specific Mason 1.006 1.001-1.031 Urine Protein NEGATIVE NEGATIVE mg/dL Urine Glucose (UA) NEGATIVE NEGATIVE mg/dL Urine Ketones NEGATIVE NEGATIVE mg/dL Urine Occult Blood LARGE H NEGATIVE Urine Nitrate NEGATIVE NEGATIVE Urine Bilirubin NEGATIVE NEGATIVE mg/dL Urine Urobilinogen 0.2 0.2-1.0 mg/dL Urine Leukocyte Esterase NEGATIVE NEGATIVE Sandra/uL Urine RBC 11-25 H 0-1 /HPF Urine WBC 2-5 H 0-1 /HPF Urine Squamous Epithelial Cells RARE 0-2 /HPF Urine Bacteria RARE None Seen /HPF White Cell Morphology Comment See comments Current Medications Medications (Trade) Dose Ordered Sig/Xenia Route PRN Reason Start Time Stop Time Status Last Admin Dose Admin Acetaminophen (TYLenol 325MG TAB) 650 mg Q4H PRN PO MILD PAIN (1-3) 10/06/24 22:30 11/05/24 22:29 10/07/24 20:41 650 MG Acetaminophen (TYLenol 325MG TAB) 650 mg Q6H PRN PO TEMPERATURE GREATER THAN 101.5 10/06/24 22:30 11/05/24 22:29 Acetaminophen/ Hydrocodone Bitart (NORco 5/325MG) 1 tab Q4H PRN PO MODERATE PAIN (4-6) 10/06/24 22:30 10/11/24 22:29 10/07/24 09:25 1 TAB Ceftriaxone Sodium 1 gm/ Sodium Chloride 50 ml @ 100 mls/hr Q24H IV 10/06/24 22:30 10/06/24 22:23 DC Ceftriaxone Sodium (ROCEphine 1G INJ) 1 gm ONCE STAT IVPB 10/06/24 20:23 10/06/24 20:33 DC 10/06/24 20:41 1 GM Ceftriaxone Sodium (ROCEphine 1G INJ) 1 gm Q24H IVPB 10/07/24 21:00 10/17/24 20:59 10/07/24 20:36 1 GM Famotidine (Pepcid 20mg Vial) 20 mg Q24H IV 10/07/24 09:00 11/06/24 08:59 10/08/24 09:00 20 MG Ketorolac Tromethamine (toRADol) 15 mg ONCE STAT IV 10/06/24 18:06 10/06/24 18:09 DC 10/06/24 19:02 15 MG Levothyroxine Sodium (SYNTHroid 50MCG TAB) 50 mcg SYN PO 10/07/24 06:30 11/06/24 06:29 10/07/24 06:30 50 MCG Magnesium Sulfate 50 ml @ 0 mls/hr PROTOCOL PRN IV PROTOCOL 10/07/24 06:30 11/06/24 06:29 10/07/24 06:35 25 MLS/HR Morphine Sulfate (morPHINE 2MG SYG) 2 mg ONCE STAT IVP 10/06/24 20:23 10/06/24 20:33 DC 10/06/24 20:41 2 MG Ondansetron HCl (zoFRAN 4MG INJ) 4 mg ONCE STAT IVP 10/06/24 18:06 10/06/24 18:09 DC 10/06/24 19:02 4 MG Ondansetron HCl (zoFRAN 4MG INJ) 4 mg Q6H PRN IV NAUSEA/VOMITING 10/06/24 22:30 11/05/24 22:29 Sodium Chloride 1,000 ml @ 125 mls/hr Q8H IV 10/06/24 22:30 11/05/24 22:29 10/07/24 15:06 125 MLS/HR Sodium Chloride 1,000 ml @ 1,000 mls/hr Q1H STAT IV 10/06/24 18:06 10/06/24 19:05 DC 10/06/24 19:02 1,000 MLS/HR Tamsulosin HCl (FloMAX) 0.4 mg HS PO 10/07/24 21:00 11/06/24 20:59 10/07/24 20:34 0.4 MG DIAGNOSTICS / RADIOLOGY: [facility] [place] [id number] [place] [address] IMAGING REPORT Signed PATIENT: HILL TORRES MR#: [id number] : 1970 SEX: F AGE: 54 LOCATION: ED ORDER 07 STATUS: REG REPORT#: [id number] SERVICE 05 REASON: LEFT FLANK PAIN, HX OF KIDNEY STONES ORDERING PHYSICIAN: BOBBI MEJÍA NP PROCEDURE: ABD PEL WO - CT ABDOMEN/PELVIS W/O CONTRAST CT ABDOMEN PELVIS WITHOUT CONTRAST Clinical Information: LEFT FLANK PAIN, HX OF KIDNEY STONES Comparison: CT Dose Index (CTDI): 28.40 mGy Dose Length Product (DLP): 1536.00 total mGy-cm PROTOCOL: Routine noncontrast helical scanning of the abdomen and pelvis was performed at 5mm collimation. Findings: There is a left ureterovesical junction calculus measuring 7 mm causing [id number] hydroureteronephrosis. In addition, there is a second smaller calculus of the left distal ureter measuring approximately 3 mm. The right kidney lower pole collecting system shows a nonobstructing calculus measuring 13 mm. The lung bases are clear. The stomach is unremarkable. It shows no wall thickening. No gross ulceration is seen. It is not overly distended. There are no surrounding inflammatory changes. No wall lesions are identified to suggest cancer. The spleen is unremarkable. It is not enlarged. The pancreas shows normal anatomy. It is not fatty replaced. It shows no lesions. The pancreatic duct is not dilated. The gallbladder is unremarkable. It shows no cholelithiasis. The gallbladder wall is normal in thickness. There is no pericholecystic fluid. The is no acute or chronic inflammation noted. The adrenal glands are unremarkable. There is no enlargement. No lesions are noted. The liver is unremarkable. It shows no focal masses. The appendix is unremarkable. It shows no evidence of inflammation. No appendicolith is seen. The small bowel is unremarkable. There is no evidence of dilatation to suggest obstruction. No evidence of adynamic ileus is seen. There is no small bowel wall thickening to suggest enteritis. The colon is unremarkable. The urinary bladder is unremarkable. There is no wall thickening to suggest tumor or inflammation. There are no intraluminal calculi. There are no diverticula. There is no evidence of chronic bladder outlet obstruction. There is no evidence of urinary bladder distention to suggest urinary retention. The other pelvic structures are unremarkable. The bony and vascular structures are unremarkable for the patient's age. IMPRESSION: Urinary tract calculus causing obstruction. This study was performed using dose reduction techniques to include automated exposure control and/or adjustment of the mA and/or kV according to patient size. DICTATED BY: SULY TURNER MD DATE: 10/06/241931 ELECTRONICALLY SIGNED BY: SULY TURNER MD DATE: 10/06/241941 ASSESSMENT: Obstructive ureterolithiasis per CT POA Suspected urinary tract infection POA Acute leukocytosis POA Hypothyroidism POA History of kidney stone POA PLAN: Obstructive ureterolithiasis -Patient admitted to medical surgical -NS @ 75 ml / hr x1 bag and re evaluate- Increased to 125 mL/hr. -500 mL bolus once for symptomatic hypotension. -Rocephin 1 g IV daily for empiric coverage -Famotidine for GI prophylaxis -Electrolytes replaced as needed per protocol -Diet advanced- GI soft. Will advance as tolerated. -Urology consulted- we will appreciate their recommendations. -s/p functional study with IVP with tomograms. Case discussed with attending physician and came up with above treatment and plan of care. HU VALENZUELA MD October 08, 2024 10:41
--- NOTE | 2024-10-08 10:49 | HMCIMG ---
EXCRETORY UROGRAM WITH TOMOGRAMS Reason for exam: KIDNEY STONES. TECHNIQUE: Taxicab Coordinator view of the abdomen obtained. Patient was then given 100 mL of Omnipaque 350 IV and sequential images of the abdomen obtained. FINDINGS: * Taxicab Coordinator image demonstrates normal bowel gas pattern. Right lower pole calculus 14 mm. * Nephrotomograms demonstrate normal size, shape, and axis of the kidneys. There is temporal symmetry of enhancement. Collecting systems are normal, without filling defect. * Ureters are normal in course and caliber bilaterally. * Urinary bladder is normal. No extrinsic mass compression or filling defect noted. There is minimal postvoid residual. IMPRESSION: Normal excretory urogram with tomograms. Nonobstructing right nephrolithiasis lower pole.
--- NOTE | 2024-10-08 14:44 | NUR ---
Consent secured for scheduled lithotrypsy tomorow at noon. PT was informed that she will need to be NPO after midnight.
--- NOTE | 2024-10-08 17:55 | NUR ---
Dr Londono at the [facility] explains the procedure that he plans on performing on the patient to repair his injuries. The pt agreed to the treatment plan. Addendum: 10/08/24 at 1756 by DALTON HINES JR, RN RN charted on wrong patient
[2024-10-09] VITALS (30 sets, daily range): BP systolic 111–143; BP diastolic 62–92; PULSE 59–106; RESP 16–21; TEMP 97.7–98.3; O2SAT 97–99
[2024-10-09 05:53] LABS: BASOPHILS # (AUTO) 0.02 K/uL (0.00-0.20); BASOPHILS % (AUTO) 0.3 % (0.0-5.0); EOSINOPHILS # (AUTO) 0.07 K/uL (0.00-0.70); HEMATOCRIT 36.4 % (36-48); IMMATURE GRANULOCYTE ABSOLUTE 0.01 K/uL (0-1); LYMPHOCYTES % (AUTO) 28.1 % (21.0-51.0); MEAN CORPUSCULAR HEMOGLOBIN 31.3 pg (27.0-33.0); MEAN CORPUSCULAR HGB CONC 33.8 g/dL (32.0-36.0); MEAN CORPUSCULAR VOLUME 92.6 fL (79-99); MONOCYTES # (AUTO) 0.5 K/uL (0.1-1.0); MONOCYTES % (AUTO) 6.3 % (3.0-13.0); NEUTROPHILS # (AUTO) 4.6 K/uL (1.8-7.7); NEUTROPHILS % (AUTO) 64.2 % (40.0-77.0); PLATELET COUNT (AUTO) 220 K/uL (130-400); RED BLOOD CELL COUNT(AUTO) 3.93 MIL/uL (4.00-5.50); RED CELL DISTRIBUTION WIDTH 11.9 % (11.0-15.5); WHITE BLOOD COUNT (AUTO) 7.2 K/uL (4.8-10.8)
[2024-10-09 06:24] LABS: BILIRUBIN,TOTAL 0.2 mg/dL (0.2-1.0); CREATININE 0.9 mg/dL (0.5-1.0); POTASSIUM 3.6 mmol/L (3.5-5.1); TOTAL PROTEIN, SERUM 6.1 g/dL (6.0-8.3)
--- NOTE | 2024-10-09 09:49 | PN ---
[facility] PROGRESS NOTE Date of Service: October 09, 2024 Time of Service: 09:47 SUBJECTIVE: This is a 54-year-old female with past medical history of SVT with cardiac ablation, hypothyroidism and kidney stones who present to the ED for complaints of left flank pain radiating to her left lower quadrant all the way to her left labia which started today in the morning associated with chills and nausea.Patient states she has similar symptoms in the past and was seen in this ER facility last April of 2024 and as per patient she was sent home and has not seen a urologist outpatient she said. Seen and examined patient int he ED awake,alert and coherent,appears uncomfortable,continue to complain of left flank pain 5/10 pain level.Patient denies fever but has chills,denies vomiting but has nausea ,denies chest pain,palpitation and shortness of breath.Patient denies dysuria and hematuria. Latest vital signs temperature 98.1�, heart rate 90, blood pressure 135/81 saturation 100% on room air. Labs WBC 14, neutrophils 84, hemoglobin 14, hematocrit 42, platelet count 281. Chloride 100, creatinine 1.1, GFR 60, lactic acid 0.9. Urinalysis significant with large occult blood, urine RBC 11-25, urine WBC 2-5. CT abdomen and pelvis without contrast result revealed urinary tract calculus causing obstruction. While in the ER patient received 1 L NS bolus, Zofran 4 mg IV, Toradol 15 mg IV, Rocephin 1 g IV and morphine 2 mg IV. We will admit patient for further medical management. 10/07: Patient was seen and examined this morning at bedside. The patient denies chest pain, shortness of breath, nausea, vomiting, fever, chills. Patients blood pressure is 92/56. Patient reports dizziness, lightheadedness when standing. Urology consult pending. Urology is aware of consult, as per Dr. Adams. We will increased fluid rate to 125mL per hour, and give 500 mL bolus for symptomatic hypotension. We will continue to monitor the patient. Patient continues on Zosyn. 10/08: Patient was seen and examined this morning at bedside. The patient denies abdominal pain, chest pain, shortness of breath, nausea, fever, chills. Patients blood pressure has improved today, currently 115/65. The patient was seen by Urologist Dr. Fernandez- A functional study with IVP with tomogram was done today. The patients diet has been advanced to a GI soft diet and we will advance as tolerated. We will continue to follow urology recommendations. 10/09: Patient was seen and examined this morning at bedside. The patient denies abdominal pain, chest pain, shortness of breath, nausea, fever, chills. Patients blood pressure is stable at 115/72. The patient will be undergoing a Lithotripsy today. REVIEW OF SYSTEMS CONSTITUTIONAL: Complaints of chills Denies fevers, night sweats. No unintentional weight loss reported. NEUROLOGICAL: Denies headache, amaurosis fugax, motor weakness, sensory defi cit, vertigo/spinning sensation, gait abnormalities, or tremors. ENT: No hearing loss, otalgia, otorrhea, rhinitis, rhinorrhea, hoarseness, or sore throat. CARDIOVASCULAR: Denies any exertional angina, dyspnea on exertion, orthopnea, paroxysmal nocturnal dyspnea, palpitations, life-threatening arrhythmias, claudication. PULMONARY: Denies any shortness of breath, cough, phlegm/sputum, hemoptysis, pleuritic chest pain. SLEEP: Denies morning headaches, daytime somnolence or napping. Denies difficulty falling asleep, staying asleep, waking from sleep. Denies knowledge of snoring. GASTROINTESTINAL: Complains of nausea Denies any type of dysphagia to either liquids or solids. Denies vomiting, pyrosis, early satiety, abdominal pain, diarrhea, constipation, or changes in stool consistency or caliber. Denies coffee-ground emesis, hematemesis, hematochezia, or melanotic stools. GENITOURINARY: Complaints of left flank pain Denies frequency, urgency, nocturia, incontinence (Storage/Irritative symptoms.) Low urinary stream, straining to void, urinary intermittency or hesitancy, splitting of the voiding stream, terminal dribbling. ENDOCRINOLOGIC: Denies polyuria, polydipsia, polyphagia or heat/cold intoleran david. HEMATOLOGIC: Denies thrombophilia/previous clots, or coagulopathy/bleeding disorders. ONCOLOGIC: Denies personal history of malignancy. DERMATOLOGIC: Denies rashes or pruritus. PSYCHIATRIC: Denies any suicidal or homicidal ideation. Denies hallucinations. PHYSICAL EXAM GENERAL APPEARANCE: The patient is awake, alert, and oriented, in no acute cardiopulmonary distress. NEUROLOGICAL: Cranial nerves II-XII grossly intact. Motor is 5/5 in bilateral upper and lower extremities proximal to distal. No sensory deficits. HEENT: Face is symmetric. Pupils are equal and reactive. Extraocular movements are intact. NECK: Supple. No JVD. No thyromegaly. No submental, submandibular, pre- /postauricular, occipital or supraclavicular lymphadenopathy. CHEST: Normal chest expansion. No Telemetry. LUNGS: Absence of any rales, rhonchi or any wheezing. CARDIOVASCULAR: Regular. S1 and S2 normal. No appreciable rubs, murmurs or gallops. ABDOMEN: Soft, nontender, and nondistended. There is no rebound, voluntary guarding, or rigidity. : Deferred. No Villatoro. EXTREMITIES: Non-edematous and not cyanotic. No clubbing. Good capillary refill. SKIN: No skin breakdown. Vital Signs (last 8hr) Date Time Temp Pulse Resp B/P (MAP) Pulse Ox O2 Delivery O2 Flow Rate FiO2 10/09/24 07:47 99 Room Air* 0 21 10/09/24 04:00 97.9 70 20 115/72 96 Room Air LABS: Laboratory: Test 10/09/24 05:40 10/08/24 04:08 Range/Units White Blood Count 7.2 4.8-10.8 K/uL Red Blood Count 3.93 L 4.00-5.50 MIL/uL Hemoglobin 12.3 12.0-16.0 g/dL Hematocrit 36.4 36-48 % Mean Corpuscular Volume 92.6 79-99 fL Mean Corpuscular Hemoglobin 31.3 27.0-33.0 pg Mean Corpuscular Hemoglobin Concent 33.8 32.0-36.0 g/dL Red Cell Distribution Width 11.9 11.0-15.5 % Platelet Count 220 130-400 K/uL Mean Platelet Volume 10.7 H 7.5-10.5 fL Immature Granulocyte % (Auto) 0.1 0-1 % Neutrophils (%) (Auto) 64.2 40.0-77.0 % Lymphocytes (%) (Auto) 28.1 21.0-51.0 % Monocytes (%) (Auto) 6.3 3.0-13.0 % Eosinophils (%) (Auto) 1.0 0.0-8.0 % Basophils (%) (Auto) 0.3 0.0-5.0 % Neutrophils # (Auto) 4.6 1.8-7.7 K/uL Lymphocytes # (Auto) 2.0 1.0-4.8 K/uL Monocytes # (Auto) 0.5 0.1-1.0 K/uL Eosinophils # (Auto) 0.07 0.00-0.70 K/uL Basophils # (Auto) 0.02 0.00-0.20 K/uL Absolute Immature Granulocyte (auto 0.01 0-1 K/uL Nucleated Red Blood Cells 0.0 0.0-0.19 % Sodium Level 142 136-145 mmol/L Potassium Level 3.6 3.5-5.1 mmol/L Chloride Level 107 101-111 mmol/L Carbon Dioxide Level 28 21-32 mmol/L Blood Urea Nitrogen 8 7-18 mg/dL Creatinine 0.9 0.5-1.0 mg/dL Glomerular Filtration Rate Calc 77 >90 mL/min Random Glucose 87 70-105 mg/dL Total Calcium 8.5 8.5-10.1 mg/dL Total Bilirubin 0.2 0.2-1.0 mg/dL Aspartate Amino Transf (AST/SGOT) 10 10-37 U/L Alanine Aminotransferase (ALT/SGPT) 12 12-78 U/L Alkaline Phosphatase 74 50-136 U/L C-Reactive Protein, Quantitative 1.20 0.5-3.0 mg/L Total Protein 6.1 6.0-8.3 g/dL Albumin 3.0 L 3.5-5.0 g/dL Erythrocyte Sedimentation Rate 10 0-30 MM/HR Lactic Acid Level 0.8 0.8-2.5 mmol/L Magnesium Level 2.10 1.80-2.40 mg/dL Current Medications Medications (Trade) Dose Ordered Sig/Xenia Route PRN Reason Start Time Stop Time Status Last Admin Dose Admin Acetaminophen (TYLenol 325MG TAB) 650 mg Q4H PRN PO MILD PAIN (1-3) 10/06/24 22:30 11/05/24 22:29 10/07/24 20:41 650 MG Acetaminophen (TYLenol 325MG TAB) 650 mg Q6H PRN PO TEMPERATURE GREATER THAN 101.5 10/06/24 22:30 11/05/24 22:29 Acetaminophen/ Hydrocodone Bitart (NORco 5/325MG) 1 tab Q4H PRN PO MODERATE PAIN (4-6) 10/06/24 22:30 10/11/24 22:29 10/07/24 09:25 1 TAB Ceftriaxone Sodium 1 gm/ Sodium Chloride 50 ml @ 100 mls/hr Q24H IV 10/06/24 22:30 10/06/24 22:23 DC Ceftriaxone Sodium (ROCEphine 1G INJ) 1 gm ONCE STAT IVPB 10/06/24 20:23 10/06/24 20:33 DC 10/06/24 20:41 1 GM Ceftriaxone Sodium (ROCEphine 1G INJ) 1 gm Q24H IVPB 10/07/24 21:00 10/17/24 20:59 10/08/24 20:37 1 GM Famotidine (Pepcid 20mg Vial) 20 mg Q24H IV 10/07/24 09:00 11/06/24 08:59 10/08/24 09:00 20 MG Ketorolac Tromethamine (toRADol) 15 mg ONCE STAT IV 10/06/24 18:06 10/06/24 18:09 DC 10/06/24 19:02 15 MG Levothyroxine Sodium (SYNTHroid 50MCG TAB) 50 mcg SYN PO 10/07/24 06:30 11/06/24 06:29 10/07/24 06:30 50 MCG Magnesium Sulfate 50 ml @ 0 mls/hr PROTOCOL PRN IV PROTOCOL 10/07/24 06:30 11/06/24 06:29 10/07/24 06:35 25 MLS/HR Morphine Sulfate (morPHINE 2MG SYG) 2 mg ONCE STAT IVP 10/06/24 20:23 10/06/24 20:33 DC 10/06/24 20:41 2 MG Ondansetron HCl (zoFRAN 4MG INJ) 4 mg ONCE STAT IVP 10/06/24 18:06 10/06/24 18:09 DC 10/06/24 19:02 4 MG Ondansetron HCl (zoFRAN 4MG INJ) 4 mg Q6H PRN IV NAUSEA/VOMITING 10/06/24 22:30 11/05/24 22:29 Sodium Chloride 1,000 ml @ 125 mls/hr Q8H IV 10/06/24 22:30 11/05/24 22:29 10/07/24 15:06 125 MLS/HR Sodium Chloride 1,000 ml @ 1,000 mls/hr Q1H STAT IV 10/06/24 18:06 10/06/24 19:05 DC 10/06/24 19:02 1,000 MLS/HR Tamsulosin HCl (FloMAX) 0.4 mg HS PO 10/07/24 21:00 11/06/24 20:59 10/08/24 20:37 0.4 MG DIAGNOSTICS / RADIOLOGY: [facility] [address] [place] [address] IMAGING REPORT Signed PATIENT: HILL TORRES MR#: [id number] : 1970 SEX: F AGE: 54 LOCATION: 4D ORDER 2300 STATUS: ADM IN REPORT#: [id number] SERVICE [id number] REASON: KIDNEY STONES ORDERING PHYSICIAN: ENOC EVANS MD PROCEDURE: IVP - IVP W/WO TOMOGRAMS EXCRETORY UROGRAM WITH TOMOGRAMS Reason for exam: KIDNEY STONES. TECHNIQUE: Grinding Operator view of the abdomen obtained. Patient was then given 100 mL of Omnipaque 350 IV and sequential images of the abdomen obtained. FINDINGS: * Grinding Operator image demonstrates normal bowel gas pattern. Right lower pole calculus 14 mm. * Nephrotomograms demonstrate normal size, shape, and axis of the kidneys. There is temporal symmetry of enhancement. Collecting systems are normal, without filling defect. * Ureters are normal in course and caliber bilaterally. * Urinary bladder is normal. No extrinsic mass compression or filling defect noted. There is minimal postvoid residual. IMPRESSION: Normal excretory urogram with tomograms. Nonobstructing right nephrolithiasis lower pole. DICTATED BY: SULY TURNER MD DATE: 10/08/241044 ELECTRONICALLY SIGNED BY: SULY TURNER MD DATE: 10/08/24 104 ASSESSMENT: Obstructive ureterolithiasis per CT POA Suspected urinary tract infection POA Acute leukocytosis POA Hypothyroidism POA History of kidney stone POA PLAN: Obstructive ureterolithiasis -Patient admitted to medical surgical -NS @ 75 ml / hr x1 bag and re evaluate- Increased to 125 mL/hr. -500 mL bolus once for symptomatic hypotension. -Rocephin 1 g IV daily for empiric coverage -Famotidine for GI prophylaxis -Electrolytes replaced as needed per protocol -Diet advanced- GI soft. Will advance as tolerated. -Urology consulted- we will appreciate their recommendations. -s/p functional study with IVP with tomograms. -Lithotripsy today. Case discussed with attending physician and came up with above treatment and plan of care. HU VALENZUELA MD October 09, 2024 09:49
[2024-10-09] MEDS: LACTATED RINGERS 1000ML 1,000 ML IV ONE (11:30)
[2024-10-09] MEDS ORDERED: LIDOCAINE PF 100MG/5ML (2%) SYRINGE 5ML ONE (11:41)
[2024-10-09] MEDS ORDERED: dexaMETHasone SOD PHOSPHATE 4 MG/ML 1ML VIAL ONE (11:41)
[2024-10-09] MEDS ORDERED: FENTanyl CITRate PF 50 MCG/1 ML 2ML VIAL ONE ×2 (11:42→15:11)
[2024-10-09] MEDS ORDERED: MIDAZOLAM HCL 1 MG/ML 2ML VIAL ONE (11:42)
[2024-10-09] MEDS ORDERED: ondanSETRON 4MG INJ ONE (11:42)
[2024-10-09] MEDS ORDERED: proPOFol 10 MG/ML 20ML VIAL IV ONE (11:42)
--- NOTE | 2024-10-09 13:04 | NUR ---
Patient appearing very uncomfortable and tearful. Stated her pain has "Went to the left side" flank area. Stated "I can't pee" Returned to bed with SR'S up x 2, Informed Ernie Puri, Anesthesia of pain. He administered Fentanyl and IV Tylenol. Bedside monitor applied. She now appears to be settling down and less distraught. Encouraged her to take slow deep breaths and try to relax. Nurse at bedside. Call light in reach.
[2024-10-09] MEDS ORDERED: acetaMINOPHEN 100 ML ONE (13:07)
--- NOTE | 2024-10-09 13:37 | NUR ---
Dr Rueda to assess. Updated on pain migration and inability to urinate. He spoke at length with Patient. Spoke with Sister on phone explaining new development and need for stents to Ureters. Telephone consent obtained from Sushila Hung Sister with 2 Nurses as witness. Patient restful with VS wnl. Sats 99% ora. Reported off in full to Vipin ESTRADA.
[2024-10-09] MEDS ORDERED: IOHEXOL-350 50ML VIAL IV ONE (13:39)
[2024-10-09] MEDS ORDERED: GLYCOPYRROLATE 0.2 MG/ML 5 ML VIAL ONE (14:06)
[2024-10-09] MEDS ORDERED: ePHEDrine SULFate 50 MG/ML AMPULE ONE (14:09)
[2024-10-09] MEDS: IOHEXOL-350 50ML VIAL IV ONE (15:30)
--- NOTE | 2024-10-09 16:04 | HMCIMG ---
Fluoroscopic guidance History: Renal calculus,Cysto Fluoroscopic guidance provided. Procedure by ordering physician in operating room suite with fluoroscopic guidance. Several spot images were obtained. Impression: Fluoroscopic guidance.
--- NOTE | 2024-10-09 16:50 | NUR ---
Pt is received from recovery room the patient is awake and is settled back in to her room. She denies pain and this keno writer / runner reminded her that she now has a vargas catheter and that the plan is to keep it overnight and remove it in the morning. Iv fluids are resumed at 100ml's hr by PIV on her left arm. The urine is pink in color and the vargas is hunge below the level of the blader.
[2024-10-09 16:51] LABS: APPEARANCE,URINE CLEAR (CLEAR); BILIRUBIN,URINE NEGATIVE (NEGATIVE); COLOR,URINE YELLOW (YELLOW); GLUCOSE, URINE (UA) NEGATIVE (NEGATIVE); KETONES,URINE NEGATIVE (NEGATIVE); LEUKOCYTE ESTERASE ,URINE NEGATIVE Leu/uL (NEGATIVE); NITRATE,URINE NEGATIVE (NEGATIVE); OCCULT BLOOD,URINE MODERATE (NEGATIVE); PROTEIN,URINE NEGATIVE (NEGATIVE); UROBILINOGEN,URINE 0.2 mg/dL (0.2-1.0)
[2024-10-09 17:02] LABS: BACTERIA,URINE RARE /HPF (None Seen); MUCUS,URINE FEW LPF (None Seen); SQUAMOUS EPITHELIAL CELL,UR RARE /HPF (0-2)
--- NOTE | 2024-10-09 17:14 | NUR ---
PT continues to resting in her room, vargas continues to drain pink tinged urine with no alfredo bleeding. The call baez is in reach and the bed is in a low posiion.
[2024-10-09] MEDS: LACTATED RINGERS 1000ML 1,000 ML IV SCH (18:09)
--- NOTE | 2024-10-09 18:09 | NUR ---
PT is medicated for pain. She is also bladder scanned as she complains of having a full blader and the urge to pee. Paging Dr Rueda for further orders.
--- NOTE | 2024-10-09 18:33 | NUR ---
Dr Rueda returns call and orders IV Dilaudid for pain as well as PO medicaion for blader spasms.
[2024-10-09] MEDS: hydroMORPHone 1 MG INJ IVP PRN (18:40)
--- NOTE | 2024-10-09 19:43 | OP ---
DATE OF PROCEDURE: 10/09/2024 PREOPERATIVE DIAGNOSES: * Right kidney stone measuring 11 x 9 mm. * Left distal ureteric stone measuring about 4 mm with left flank pain and left renal colic. PROCEDURES PERFORMED: * Right-sided extracorporeal shockwave lithotripsy 3000 shocks at 24 kV. * Cystoscopy, bilateral retrograde pyelography and placement of bilateral ureteric stents, 6-Lithuanian 26 cm double-J stents. POSTOPERATIVE DIAGNOSES: * Lower pole right kidney stone, 11 mm. * Distal ureteric stone, left side, obstructing and impacted, measuring 4 x 5 mm. SPECIMENS: None. DRAINS: 6-Lithuanian Villatoro catheter as well as bilateral ureteric stents. COMPLICATIONS: None. ANESTHESIA: General anesthesia. INDICATIONS FOR PROCEDURE: This is a 54-year-old female admitted to the hospital with left renal colic and identified on imaging studies to have distal ureteric stone on the left side and right-sided nonobstructive kidney stone on the right-hand side. The patient was managed conservatively initially, had IVP that showed no obstruction whatsoever in either right and left ureters and for that reason, no intervention outside of elective extracorporeal shockwave see as well as medical expulsive therapy for her left-sided kidney stone was planned. Within 36 hours, however, the patient developed left renal colic. The patient had previously been offered extracorporeal shockwave lithotripsy on her right hand side, which she has accepted to proceed with. However, prior to the commencement of a lithotripsy, the left renal colic began again. For that reason, after reviewing with the patient and her sister, the treatment plans were amended to include placement of left-sided double-J stents, possible ureteroscopy stone basketing, holmium laser lithotripsy on the left, and extracorporeal shockwave lithotripsy on the right hand side where she has a large stone and have a stent placement on that side as well. Risks, benefits, and alternatives were discussed with the patient and as such, she understood, did provide fully informed consent and requested procedure to be performed. FINDINGS: Bladder neck and urethra coapted well, but the mucosa is smooth. No tumors, no stones that were identified. The KUB did show an 11 mm lower pole kidney stone on the right and ureteroscopy was begun, but could not be terminated or completed primarily because of the extremely narrow intramural ureter and a concern for iatrogenic injury. For that reason, ureteroscopy was terminated prior to being able to encounter the impacted stone. DESCRIPTION OF PROCEDURE: The additional procedure was duly identified. Informed consent was confirmed. Time was taken. She was brought to the lithotripsy suite, was placed supine on lithotomy gurney. After adequate hemodynamic monitoring had been established by Anesthesiology, the patient underwent smooth induction of general anesthesia by Anesthesiology. Next, a C-arm was then brought into the field. A stone on the right hand side was identified and then the shock was brought to her flank on the right hand side and extracorporeal shockwave lithotripsy was then performed, 3000 shocks 24 kV until the stone appeared to fragment completely and disappeared from a fluoroscopy screen. Having completed a treatment of her kidney stone, the patient was then carefully moved from the lithotripsy suite to the cystoscopy suite where she was placed in a dorsal lithotomy position. Her genitalia were thoroughly prepped and draped in sterile fashion and rigid cystourethroscope was performed with the findings as above. Open-ended ureteric catheter was utilized to intubate the right ureteral orifice with 0.035 inch Glidewire was advanced up the renal pelvis on the right side. The ureteric catheter went all the way up to the renal pelvis. [place] dip was obtained. Retrograde pyelogram shows no extravasation. Wire was introduced up the ureteric catheter and the catheter was exchanged out and over the wire through the cystoscope was advanced a 6-Lithuanian 24 cm double-J up to the renal pelvis on the right side. The wire was removed with a satisfactory curl in the renal pelvis above and bladder below. Identical procedure was then performed on the left hand side. Access was obtained with an open-ended ureteric catheter. The ureteral orifice appeared more capacious. A wire was advanced up the renal pelvis. The ureteric catheter was removed and a rigid ureteroscope 7-Lithuanian was then brought into the field; however, it was not possible for the 7-Lithuanian scope to be advanced into the intramural portion of the ureter completely. Stone was impacted at that location and in order to avoid undue trauma, I elected at this stage to terminate the procedure and stage it by placing ureteric catheter there for a few days, possibly a week before returning at a later date with passive dilation having been achieved. For that reason, the wire was maintained in place back to the cystoscope and over the wire was advanced from the left side. [place] dip was obtained. Once the wire was removed, sent for culture. The retrograde pyelogram showed extravasation. Wire was introduced up the ureteric catheter. The ureteric catheter was exchanged out. The wire was back to the cystoscope and over the wire, ureteroscope was advanced. A 6-Lithuanian 26 cm double-J stent as well on that side. Wire was removed with satisfactory curl in renal pelvis above and bladder below. With stents both on the right and left sides, the bladder was now left half full. Instruments were now carefully removed under direct vision and a 16-Lithuanian Villatoro catheter was placed in the bladder with efflux of clear urine. KUB confirmed good position of both stents. The patient was now awakened from anesthesia and was now transported from operating room to recovery room in good, stable and hemodynamically satisfactory condition having experienced no complications. PLAN: The patient will be discharged within the next 24 hours provided if she meets all criteria. Follow up in my office later this week and plan for elective ureteroscopy of the left distal ureteric stone in about a week or so electively after passive dilation of ureter has been achieved with a double-J stent and likely removal of her right-sided double-J stent if all fragments of her lithotripsy treatment of her stone have all passed by that time. No complications. TID: [id number] RECEIPT: [id number]
[2024-10-09] MEDS: oxyBUTYnin chloRIDE 5 MG TABLET PO SCH (20:19)
[2024-10-10] VITALS (9 sets, daily range): BP systolic 104–126; BP diastolic 64–79; PULSE 51–84; RESP 16–20; TEMP 98–98.5; O2SAT 93–98
[2024-10-10 06:14] LABS: HEMATOCRIT 34.9 % (36-48); MEAN CORPUSCULAR HEMOGLOBIN 31.3 pg (27.0-33.0); MEAN CORPUSCULAR HGB CONC 34.1 g/dL (32.0-36.0); MEAN CORPUSCULAR VOLUME 91.8 fL (79-99); RED BLOOD CELL COUNT(AUTO) 3.8 MIL/uL (4.00-5.50); RED CELL DISTRIBUTION WIDTH 11.9 % (11.0-15.5); WHITE BLOOD COUNT (AUTO) 9.9 K/uL (4.8-10.8)
--- NOTE | 2024-10-10 06:40 | NUR ---
GALVEZ CATHETER REMOVED PER ORDERS. URINE REMAINS BRIGHT RED IN COLOR. DTV BY 1230.
[2024-10-10 06:42] LABS: ALBUMIN 2.9 g/dL (3.5-5.0); BILIRUBIN,TOTAL 0.2 mg/dL (0.2-1.0); CREATININE 0.8 mg/dL (0.5-1.0); POTASSIUM 4.2 mmol/L (3.5-5.1); TOTAL PROTEIN, SERUM 5.9 g/dL (6.0-8.3)
--- NOTE | 2024-10-10 12:25 | PN ---
[facility] PROGRESS NOTE Date of Service: October 10, 2024 Time of Service: 12:19 SUBJECTIVE: This is a 54-year-old female with past medical history of SVT with cardiac ablation, hypothyroidism and kidney stones who present to the ED for complaints of left flank pain radiating to her left lower quadrant all the way to her left labia which started today in the morning associated with chills and nausea.Patient states she has similar symptoms in the past and was seen in this ER facility last April of 2024 and as per patient she was sent home and has not seen a urologist outpatient she said. Seen and examined patient int he ED awake,alert and coherent,appears uncomfortable,continue to complain of left flank pain 5/10 pain level.Patient denies fever but has chills,denies vomiting but has nausea ,denies chest pain,palpitation and shortness of breath.Patient denies dysuria and hematuria. Latest vital signs temperature 98.1�, heart rate 90, blood pressure 135/81 saturation 100% on room air. Labs WBC 14, neutrophils 84, hemoglobin 14, hematocrit 42, platelet count 281. Chloride 100, creatinine 1.1, GFR 60, lactic acid 0.9. Urinalysis significant with large occult blood, urine RBC 11-25, urine WBC 2-5. CT abdomen and pelvis without contrast result revealed urinary tract calculus causing obstruction. While in the ER patient received 1 L NS bolus, Zofran 4 mg IV, Toradol 15 mg IV, Rocephin 1 g IV and morphine 2 mg IV. We will admit patient for further medical management. 10/07: Patient was seen and examined this morning at bedside. The patient denies chest pain, shortness of breath, nausea, vomiting, fever, chills. Patients blood pressure is 92/56. Patient reports dizziness, lightheadedness when standing. Urology consult pending. Urology is aware of consult, as per Dr. Adams. We will increased fluid rate to 125mL per hour, and give 500 mL bolus for symptomatic hypotension. We will continue to monitor the patient. Patient continues on Zosyn. 10/08: Patient was seen and examined this morning at bedside. The patient denies abdominal pain, chest pain, shortness of breath, nausea, fever, chills. Patients blood pressure has improved today, currently 115/65. The patient was seen by Urologist Dr. Fernandez- A functional study with IVP with tomogram was done today. The patients diet has been advanced to a GI soft diet and we will advance as tolerated. We will continue to follow urology recommendations. 10/09: Patient was seen and examined this morning at bedside. The patient denies abdominal pain, chest pain, shortness of breath, nausea, fever, chills. Patients blood pressure is stable at 115/72. The patient will be undergoing a Lithotripsy today. 10/10: Patient was seen and examined this morning at bedside. Patient is s/p lithotripsy, cystoscopy, bilateral retrograde pyelography and placement of bilateral ureteric stents. Patients Villatoro catheters were removed this morning. Patient had 100cc of urine output this morning. Patients pain is controlled with Dilaudid and Oxybutynin. We will continue to follow nephrology recommendations, and continue to manage patients pain appropriately. REVIEW OF SYSTEMS CONSTITUTIONAL: Denies fevers,chills, night sweats. No unintentional weight loss reported. NEUROLOGICAL: Denies headache, amaurosis fugax, motor weakness, sensory deficit, vertigo/spinning sensation, gait abnormalities, or tremors. ENT: No hearing loss, otalgia, otorrhea, rhinitis, rhinorrhea, hoarseness, or sore throat. CARDIOVASCULAR: Denies any exertional angina, dyspnea on exertion, orthopnea, paroxysmal nocturnal dyspnea, palpitations, life-threatening arrhythmias, claudication. PULMONARY: Denies any shortness of breath, cough, phlegm/sputum, hemoptysis, pleuritic chest pain. SLEEP: Denies morning headaches, daytime somnolence or napping. Denies difficulty falling asleep, staying asleep, waking from sleep. Denies knowledge of snoring. GASTROINTESTINAL: Denies any type of dysphagia to either liquids or solids. Denies nausea, vomiting, pyrosis, early satiety, abdominal pain, diarrhea, constipation, or changes in stool consistency or caliber. Denies coffee-ground emesis, hematemesis, hematochezia, or melanotic stools. GENITOURINARY: Complaints of left flank pain Denies frequency, urgency, n octuria, incontinence (Storage/Irritative symptoms.) Low urinary stream, straining to void, urinary intermittency or hesitancy, splitting of the voiding stream, terminal dribbling. ENDOCRINOLOGIC: Denies polyuria, polydipsia, polyphagia or heat/cold intolerances. HEMATOLOGIC: Denies thrombophilia/previous clots, or coagulopathy/bleeding disorders. ONCOLOGIC: Denies personal history of malignancy. DERMATOLOGIC: Denies rashes or pruritus. PSYCHIATRIC: Denies any suicidal or homicidal ideation. Denies hallucinations. PHYSICAL EXAM GENERAL APPEARANCE: The patient is awake, alert, and oriented, in no acute cardiopulmonary distress. NEUROLOGICAL: Cranial nerves II-XII grossly intact. Motor is 5/5 in bilateral upper and lower extremities proximal to distal. No sensory deficits. HEENT: Face is symmetric. Pupils are equal and reactive. Extraocular movements are intact. NECK: Supple. No JVD. No thyromegaly. No submental, submandibular, pre- /postauricular, occipital or supraclavicular lymphadenopathy. CHEST: Normal chest expansion. No Telemetry. LUNGS: Absence of any rales, rhonchi or any wheezing. CARDIOVASCULAR: Regular. S1 and S2 normal. No appreciable rubs, murmurs or gallops. ABDOMEN: Soft, nontender, and nondistended. There is no rebound, voluntary guarding, or rigidity. : Deferred. No Villatoro. EXTREMITIES: Non-edematous and not cyanotic. No clubbing. Good capillary refill. SKIN: No skin breakdown. Vital Signs (last 8hr) Date Time Temp Pulse Resp B/P (MAP) Pulse Ox O2 Delivery O2 Flow Rate FiO2 10/10/24 11:43 98.4 63 20 104/64 100 Room Air 10/10/24 08:53 98 Room Air* 0 21 10/10/24 07:58 98.4 67 18 123/70 98 Room Air LABS: Laboratory: Test 10/10/24 06:07 10/09/24 15:30 10/09/24 05:40 Range/Units White Blood Count 9.9 4.8-10.8 K/uL Red Blood Count 3.80 L 4.00-5.50 MIL/uL Hemoglobin 11.9 L 12.0-16.0 g/dL Hematocrit 34.9 L 36-48 % Mean Corpuscular Volume 91.8 79-99 fL Mean Corpuscular Hemoglobin 31.3 27.0-33.0 pg Mean Corpuscular Hemoglobin Concent 34.1 32.0-36.0 g/dL Red Cell Distribution Width 11.9 11.0-15.5 % Platelet Count 219 130-400 K/uL Mean Platelet Volume 10.8 H 7.5-10.5 fL Nucleated Red Blood Cells 0.0 0.0-0.19 % Sodium Level 137 136-145 mmol/L Potassium Level 4.2 3.5-5.1 mmol/L Chloride Level 103 101-111 mmol/L Carbon Dioxide Level 27 21-32 mmol/L Blood Urea Nitrogen 7 7-18 mg/dL Creatinine 0.8 0.5-1.0 mg/dL Glomerular Filtration Rate Calc 89 >90 mL/min Random Glucose 85 70-105 mg/dL Total Calcium 8.6 8.5-10.1 mg/dL Total Bilirubin 0.2 0.2-1.0 mg/dL Aspartate Amino Transf (AST/SGOT) 12 10-37 U/L Alanine Aminotransferase (ALT/SGPT) 10 L 12-78 U/L Alkaline Phosphatase 69 50-136 U/L Total Protein 5.9 L 6.0-8.3 g/dL Albumin 2.9 L 3.5-5.0 g/dL Urine Color YELLOW YELLOW Urine Appearance CLEAR CLEAR Urine pH 6.0 5.0-8.0 Urine Specific [place] 1.015 1.001-1.031 Urine Protein NEGATIVE NEGATIVE mg/dL Urine Glucose (UA) NEGATIVE NEGATIVE mg/dL Urine Ketones NEGATIVE NEGATIVE mg/dL Urine Occult Blood MODERATE H NEGATIVE Urine Nitrate NEGATIVE NEGATIVE Urine Bilirubin NEGATIVE NEGATIVE mg/dL Urine Urobilinogen 0.2 0.2-1.0 mg/dL Urine Leukocyte Esterase NEGATIVE NEGATIVE Sandra/uL Urine RBC 11-25 H 0-1 /HPF Urine WBC 11-25 H 0-1 /HPF Urine Squamous Epithelial Cells RARE 0-2 /HPF Urine Bacteria RARE None Seen /HPF Urine Hyaline Casts 2-5 H 0-1 /LPF /LPF Immature Granulocyte % (Auto) 0.1 0-1 % Neutrophils (%) (Auto) 64.2 40.0-77.0 % Lymphocytes (%) (Auto) 28.1 21.0-51.0 % Monocytes (%) (Auto) 6.3 3.0-13.0 % Eosinophils (%) (Auto) 1.0 0.0-8.0 % Basophils (%) (Auto) 0.3 0.0-5.0 % Neutrophils # (Auto) 4.6 1.8-7.7 K/uL Lymphocytes # (Auto) 2.0 1.0-4.8 K/uL Monocytes # (Auto) 0.5 0.1-1.0 K/uL Eosinophils # (Auto) 0.07 0.00-0.70 K/uL Basophils # (Auto) 0.02 0.00-0.20 K/uL Absolute Immature Granulocyte (auto 0.01 0-1 K/uL C-Reactive Protein, Quantitative 1.20 0.5-3.0 mg/L Current Medications Medications (Trade) Dose Ordered Sig/Xenia Route PRN Reason Start Time Stop Time Status Last Admin Dose Admin Acetaminophen (TYLenol 325MG TAB) 650 mg Q4H PRN PO MILD PAIN (1-3) 10/06/24 22:30 11/05/24 22:29 10/07/24 20:41 650 MG Acetaminophen (TYLenol 325MG TAB) 650 mg Q6H PRN PO TEMPERATURE GREATER THAN 101.5 10/06/24 22:30 11/05/24 22:29 Acetaminophen/ Hydrocodone Bitart (NORco 5/325MG) 1 tab Q4H PRN PO MODERATE PAIN (4-6) 10/06/24 22:30 10/11/24 22:29 10/10/24 10:50 1 TAB Ceftriaxone Sodium 1 gm/ Sodium Chloride 50 ml @ 100 mls/hr Q24H IV 10/06/24 22:30 10/06/24 22:23 DC Ceftriaxone Sodium (ROCEphine 1G INJ) 1 gm ONCE STAT IVPB 10/06/24 20:23 10/06/24 20:33 DC 10/06/24 20:41 1 GM Ceftriaxone Sodium (ROCEphine 1G INJ) 1 gm Q24H IVPB 10/07/24 21:00 10/17/24 20:59 10/09/24 20:20 1 GM Famotidine (Pepcid 20mg Vial) 20 mg Q24H IV 10/07/24 09:00 11/06/24 08:59 10/10/24 08:53 20 MG Hydromorphone HCl (DiLAUDid 1MG INJ) 1 mg Q4H PRN IVP SEVERE PAIN (7-10) 10/09/24 18:30 10/14/24 18:29 10/10/24 08:53 1 MG Ketorolac Tromethamine (toRADol) 15 mg ONCE STAT IV 10/06/24 18:06 10/06/24 18:09 DC 10/06/24 19:02 15 MG Lactated Ringer's 1,000 ml @ 100 mls/hr Q10H IV 10/09/24 17:00 11/08/24 16:59 10/10/24 03:39 100 MLS/HR Levothyroxine Sodium (SYNTHroid 50MCG TAB) 50 mcg SYN PO 10/07/24 06:30 11/06/24 06:29 10/10/24 06:07 50 MCG Magnesium Sulfate 50 ml @ 0 mls/hr PROTOCOL PRN IV PROTOCOL 10/07/24 06:30 11/06/24 06:29 10/07/24 06:35 25 MLS/HR Morphine Sulfate (morPHINE 2MG SYG) 2 mg ONCE STAT IVP 10/06/24 20:23 10/06/24 20:33 DC 10/06/24 20:41 2 MG Ondansetron HCl (zoFRAN 4MG INJ) 4 mg ONCE STAT IVP 10/06/24 18:06 10/06/24 18:09 DC 10/06/24 19:02 4 MG Ondansetron HCl (zoFRAN 4MG INJ) 4 mg Q6H PRN IV NAUSEA/VOMITING 10/06/24 22:30 11/05/24 22:29 Oxybutynin Chloride (oxyBUTYnin chloRIDE) 5 mg BID PO 10/09/24 21:00 11/08/24 20:59 10/10/24 08:53 5 MG Sodium Chloride 1,000 ml @ 125 mls/hr Q8H IV 10/06/24 22:30 10/09/24 16:56 DC 10/07/24 15:06 125 MLS/HR Sodium Chloride 1,000 ml @ 1,000 mls/hr Q1H STAT IV 10/06/24 18:06 10/06/24 19:05 DC 10/06/24 19:02 1,000 MLS/HR Tamsulosin HCl (FloMAX) 0.4 mg HS PO 10/07/24 21:00 11/06/24 20:59 10/09/24 20:19 0.4 MG DIAGNOSTICS / RADIOLOGY: [facility] [address] [place] [address] IMAGING REPORT Signed PATIENT: HILL TORRES MR#: [id number] : 1970 SEX: F AGE: 54 LOCATION: 4DH ORDER 1435 STATUS: ADM IN REPORT#: [id number] SERVICE 1530 REASON: Renal calculus,Cysto ORDERING PHYSICIAN: ENOC EVANS MD PROCEDURE: URORETRO - UROGRAPHY RETROGRADE Fluoroscopic guidance History: Renal calculus,Cysto Fluoroscopic guidance provided. Procedure by ordering physician in operating room suite with fluoroscopic guidance. Several spot images were obtained. Impression: Fluoroscopic guidance. DICTATED BY: SULY TURNER MD DATE: 10/09/24 160 ELECTRONICALLY SIGNED BY: SULY TURNER MD DATE: 10/09/24 160 ASSESSMENT: Obstructive ureterolithiasis per CT POA Suspected urinary tract infection POA Acute leukocytosis POA Hypothyroidism POA History of kidney stone POA PLAN: Obstructive ureterolithiasis -Patient admitted to medical surgical -NS @ 75 ml / hr x1 bag and re evaluate- Increased to 125 mL/hr. -500 mL bolus once for symptomatic hypotension. -Rocephin 1 g IV daily for empiric coverage -Famotidine for GI prophylaxis -Electrolytes replaced as needed per protocol -Diet advanced- GI soft. Will advance as tolerated. -s/p functional study with IVP with tomograms. -s/p lithotripsy, cystoscopy, bilateral retrograde pyelography and placement of bilateral ureteric stents. -Dilaudid for pain management -Continue Oxybutynin. -Urology consulted- we will appreciate their recommendations. Case discussed with attending physician and came up with above treatment and plan of care. HU VALENZUELA MD October 10, 2024 12:25
[2024-10-11 04:12] VITALS: BP 99/61; PULSE 72; RESP 18; TEMP 98.4
[2024-10-11 05:15] LABS: BASOPHILS # (AUTO) 0.01 K/uL (0.00-0.20); BASOPHILS % (AUTO) 0.1 % (0.0-5.0); EOSINOPHILS # (AUTO) 0.04 K/uL (0.00-0.70); EOSINOPHILS % (AUTO) 0.5 % (0.0-8.0); HEMATOCRIT 32.3 % (36-48); IMMATURE GRANULOCYTE ABSOLUTE 0.01 K/uL (0-1); LYMPHOCYTES # (AUTO) 2.1 K/uL (1.0-4.8); LYMPHOCYTES % (AUTO) 28.2 % (21.0-51.0); MEAN CORPUSCULAR HEMOGLOBIN 31.6 pg (27.0-33.0); MEAN CORPUSCULAR HGB CONC 34.1 g/dL (32.0-36.0); MEAN CORPUSCULAR VOLUME 92.8 fL (79-99); MONOCYTES # (AUTO) 0.4 K/uL (0.1-1.0); MONOCYTES % (AUTO) 5.9 % (3.0-13.0); NEUTROPHILS # (AUTO) 4.9 K/uL (1.8-7.7); NEUTROPHILS % (AUTO) 65.2 % (40.0-77.0); PLATELET COUNT (AUTO) 184 K/uL (130-400); RED BLOOD CELL COUNT(AUTO) 3.48 MIL/uL (4.00-5.50); WHITE BLOOD COUNT (AUTO) 7.5 K/uL (4.8-10.8)
[2024-10-11 05:47] LABS: ALBUMIN 2.6 g/dL (3.5-5.0); BILIRUBIN,TOTAL 0.1 mg/dL (0.2-1.0); CREATININE 0.8 mg/dL (0.5-1.0); POTASSIUM 3.8 mmol/L (3.5-5.1); TOTAL PROTEIN, SERUM 5.3 g/dL (6.0-8.3)
[2024-10-11 08:03] VITALS: BP 126/76; PULSE 75; RESP 18; TEMP 98.2
[2024-10-11 09:44] VITALS: O2SAT 99
--- NOTE | 2024-10-11 10:44 | PN ---
[facility] PROGRESS NOTE Date of Service: October 11, 2024 Time of Service: 10:39 SUBJECTIVE: This is a 54-year-old female with past medical history of SVT with cardiac ablation, hypothyroidism and kidney stones who present to the ED for complaints of left flank pain radiating to her left lower quadrant all the way to her left labia which started today in the morning associated with chills and nausea.Patient states she has similar symptoms in the past and was seen in this ER facility last April of 2024 and as per patient she was sent home and has not seen a urologist outpatient she said. Seen and examined patient int he ED awake,alert and coherent,appears uncomfortable,continue to complain of left flank pain 5/10 pain level.Patient denies fever but has chills,denies vomiting but has nausea ,denies chest pain,palpitation and shortness of breath.Patient denies dysuria and hematuria. Latest vital signs temperature 98.1�, heart rate 90, blood pressure 135/81 saturation 100% on room air. Labs WBC 14, neutrophils 84, hemoglobin 14, hematocrit 42, platelet count 281. Chloride 100, creatinine 1.1, GFR 60, lactic acid 0.9. Urinalysis significant with large occult blood, urine RBC 11-25, urine WBC 2-5. CT abdomen and pelvis without contrast result revealed urinary tract calculus causing obstruction. While in the ER patient received 1 L NS bolus, Zofran 4 mg IV, Toradol 15 mg IV, Rocephin 1 g IV and morphine 2 mg IV. We will admit patient for further medical management. 10/07: Patient was seen and examined this morning at bedside. The patient denies chest pain, shortness of breath, nausea, vomiting, fever, chills. Patients blood pressure is 92/56. Patient reports dizziness, lightheadedness when standing. Urology consult pending. Urology is aware of consult, as per Dr. Adams. We will increased fluid rate to 125mL per hour, and give 500 mL bolus for symptomatic hypotension. We will continue to monitor the patient. Patient continues on Zosyn. 10/08: Patient was seen and examined this morning at bedside. The patient denies abdominal pain, chest pain, shortness of breath, nausea, fever, chills. Patients blood pressure has improved today, currently 115/65. The patient was seen by Urologist Dr. Fernandez- A functional study with IVP with tomogram was done today. The patients diet has been advanced to a GI soft diet and we will advance as tolerated. We will continue to follow urology recommendations. 10/09: Patient was seen and examined this morning at bedside. The patient denies abdominal pain, chest pain, shortness of breath, nausea, fever, chills. Patients blood pressure is stable at 115/72. The patient will be undergoing a Lithotripsy today. 10/10: Patient was seen and examined this morning at bedside. Patient is s/p lithotripsy, cystoscopy, bilateral retrograde pyelography and placement of bilateral ureteric stents. Patients Villatoro catheters were removed this morning. Patient had 100cc of urine output this morning. Patients pain is controlled with Dilaudid and Oxybutynin. We will continue to follow nephrology recommendations, and continue to manage patients pain appropriately. 10/11: Patient was seen and examined this morning at bedside. Patient is s/p lit hotripsy, cystoscopy, bilateral retrograde pyelography and placement of bilateral ureteric stents. Patient reports she is feeling much improved. Patient is deemed stable for discharge today. Augmentin will be prescribed for reported burning upon urination. REVIEW OF SYSTEMS CONSTITUTIONAL: Denies fevers,chills, night sweats. No unintentional weight loss reported. NEUROLOGICAL: Denies headache, amaurosis fugax, motor weakness, sensory defi cit, vertigo/spinning sensation, gait abnormalities, or tremors. ENT: No hearing loss, otalgia, otorrhea, rhinitis, rhinorrhea, hoarseness, or sore throat. CARDIOVASCULAR: Denies any exertional angina, dyspnea on exertion, orthopnea, paroxysmal nocturnal dyspnea, palpitations, life-threatening arrhythmias, claudication. PULMONARY: Denies any shortness of breath, cough, phlegm/sputum, hemoptysis, pleuritic chest pain. SLEEP: Denies morning headaches, daytime somnolence or napping. Denies difficulty falling asleep, staying asleep, waking from sleep. Denies knowledge of snoring. GASTROINTESTINAL: Denies any type of dysphagia to either liquids or solids. Denies nausea, vomiting, pyrosis, early satiety, abdominal pain, diarrhea, constipation, or changes in stool consistency or caliber. Denies coffee-ground emesis, hematemesis, hematochezia, or melanotic stools. GENITOURINARY: Complaints of left flank pain Denies frequency, urgency, nocturia, incontinence (Storage/Irritative symptoms.) Low urinary stream, straining to void, urinary intermittency or hesitancy, splitting of the voiding stream, terminal dribbling. ENDOCRINOLOGIC: Denies polyuria, polydipsia, polyphagia or heat/cold intolerances. HEMATOLOGIC: Denies thrombophilia/previous clots, or coagulopathy/bleeding disorders. ONCOLOGIC: Denies personal history of malignancy. DERMATOLOGIC: Denies rashes or pruritus. PSYCHIATRIC: Denies any suicidal or homicidal ideation. Denies hallucinations. PHYSICAL EXAM GENERAL APPEARANCE: The patient is awake, alert, and oriented, in no acute cardiopulmonary distress. NEUROLOGICAL: Cranial nerves II-XII grossly intact. Motor is 5/5 in bilateral upper and lower extremities proximal to distal. No sensory deficits. HEENT: Face is symmetric. Pupils are equal and reactive. Extraocular movements are intact. NECK: Supple. No JVD. No thyromegaly. No submental, submandibular, pre- /postauricular, occipital or supraclavicular lymphadenopathy. CHEST: Normal chest expansion. No Telemetry. LUNGS: Absence of any rales, rhonchi or any wheezing. CARDIOVASCULAR: Regular. S1 and S2 normal. No appreciable rubs, murmurs or gallops. ABDOMEN: Soft, nontender, and nondistended. There is no rebound, voluntary guarding, or rigidity. : Deferred. No Villatoro. EXTREMITIES: Non-edematous and not cyanotic. No clubbing. Good capillary refill. SKIN: No skin breakdown. Vital Signs (last 8hr) Date Time Temp Pulse Resp B/P (MAP) Pulse Ox O2 Delivery O2 Flow Rate FiO2 10/11/24 08:03 98.2 75 18 126/76 99 Room Air 10/11/24 04:12 98.4 72 18 99/61 95 Room Air LABS: Laboratory: Test 10/11/24 05:00 10/09/24 15:30 Range/Units White Blood Count 7.5 4.8-10.8 K/uL Red Blood Count 3.48 L 4.00-5.50 MIL/uL Hemoglobin 11.0 L 12.0-16.0 g/dL Hematocrit 32.3 L 36-48 % Mean Corpuscular Volume 92.8 79-99 fL Mean Corpuscular Hemoglobin 31.6 27.0-33.0 pg Mean Corpuscular Hemoglobin Concent 34.1 32.0-36.0 g/dL Red Cell Distribution Width 12.0 11.0-15.5 % Platelet Count 184 130-400 K/uL Mean Platelet Volume 10.7 H 7.5-10.5 fL Immature Granulocyte % (Auto) 0.1 0-1 % Neutrophils (%) (Auto) 65.2 40.0-77.0 % Lymphocytes (%) (Auto) 28.2 21.0-51.0 % Monocytes (%) (Auto) 5.9 3.0-13.0 % Eosinophils (%) (Auto) 0.5 0.0-8.0 % Basophils (%) (Auto) 0.1 0.0-5.0 % Neutrophils # (Auto) 4.9 1.8-7.7 K/uL Lymphocytes # (Auto) 2.1 1.0-4.8 K/uL Monocytes # (Auto) 0.4 0.1-1.0 K/uL Eosinophils # (Auto) 0.04 0.00-0.70 K/uL Basophils # (Auto) 0.01 0.00-0.20 K/uL Absolute Immature Granulocyte (auto 0.01 0-1 K/uL Nucleated Red Blood Cells 0.0 0.0-0.19 % Sodium Level 143 136-145 mmol/L Potassium Level 3.8 3.5-5.1 mmol/L Chloride Level 108 101-111 mmol/L Carbon Dioxide Level 27 21-32 mmol/L Blood Urea Nitrogen 10 7-18 mg/dL Creatinine 0.8 0.5-1.0 mg/dL Glomerular Filtration Rate Calc 89 >90 mL/min Random Glucose 88 70-105 mg/dL Total Calcium 8.2 L 8.5-10.1 mg/dL Total Bilirubin 0.1 #L 0.2-1.0 mg/dL Aspartate Amino Transf (AST/SGOT) 10 10-37 U/L Alanine Aminotransferase (ALT/SGPT) 9 L 12-78 U/L Alkaline Phosphatase 59 50-136 U/L Total Protein 5.3 L 6.0-8.3 g/dL Albumin 2.6 L 3.5-5.0 g/dL Urine Color YELLOW YELLOW Urine Appearance CLEAR CLEAR Urine pH 6.0 5.0-8.0 Urine Specific [place] 1.015 1.001-1.031 Urine Protein NEGATIVE NEGATIVE mg/dL Urine Glucose (UA) NEGATIVE NEGATIVE mg/dL Urine Ketones NEGATIVE NEGATIVE mg/dL Urine Occult Blood MODERATE H NEGATIVE Urine Nitrate NEGATIVE NEGATIVE Urine Bilirubin NEGATIVE NEGATIVE mg/dL Urine Urobilinogen 0.2 0.2-1.0 mg/dL Urine Leukocyte Esterase NEGATIVE NEGATIVE Sandra/uL Urine RBC 11-25 H 0-1 /HPF Urine WBC 11-25 H 0-1 /HPF Urine Squamous Epithelial Cells RARE 0-2 /HPF Urine Bacteria RARE None Seen /HPF Urine Hyaline Casts 2-5 H 0-1 /LPF /LPF Current Medications Medications (Trade) Dose Ordered Sig/Xenia Route PRN Reason Start Time Stop Time Status Last Admin Dose Admin Acetaminophen (TYLenol 325MG TAB) 650 mg Q4H PRN PO MILD PAIN (1-3) 10/06/24 22:30 11/05/24 22:29 10/11/24 09:45 650 MG Acetaminophen (TYLenol 325MG TAB) 650 mg Q6H PRN PO TEMPERATURE GREATER THAN 101.5 10/06/24 22:30 11/05/24 22:29 Acetaminophen/ Hydrocodone Bitart (NORco 5/325MG) 1 tab Q4H PRN PO MODERATE PAIN (4-6) 10/06/24 22:30 10/11/24 22:29 10/10/24 10:50 1 TAB Ceftriaxone Sodium 1 gm/ Sodium Chloride 50 ml @ 100 mls/hr Q24H IV 10/06/24 22:30 10/06/24 22:23 DC Ceftriaxone Sodium (ROCEphine 1G INJ) 1 gm ONCE STAT IVPB 10/06/24 20:23 10/06/24 20:33 DC 10/06/24 20:41 1 GM Ceftriaxone Sodium (ROCEphine 1G INJ) 1 gm Q24H IVPB 10/07/24 21:00 10/17/24 20:59 10/10/24 21:05 1 GM Famotidine (Pepcid 20mg Vial) 20 mg Q24H IV 10/07/24 09:00 11/06/24 08:59 10/11/24 09:44 20 MG Hydromorphone HCl (DiLAUDid 1MG INJ) 1 mg Q4H PRN IVP SEVERE PAIN (7-10) 10/09/24 18:30 10/14/24 18:29 10/10/24 19:44 1 MG Ketorolac Tromethamine (toRADol) 15 mg ONCE STAT IV 10/06/24 18:06 10/06/24 18:09 DC 10/06/24 19:02 15 MG Lactated Ringer's 1,000 ml @ 100 mls/hr Q10H IV 10/09/24 17:00 11/08/24 16:59 10/10/24 18:19 100 MLS/HR Levothyroxine Sodium (SYNTHroid 50MCG TAB) 50 mcg SYN PO 10/07/24 06:30 11/06/24 06:29 10/11/24 06:48 50 MCG Magnesium Sulfate 50 ml @ 0 mls/hr PROTOCOL PRN IV PROTOCOL 10/07/24 06:30 11/06/24 06:29 10/07/24 06:35 25 MLS/HR Morphine Sulfate (morPHINE 2MG SYG) 2 mg ONCE STAT IVP 10/06/24 20:23 10/06/24 20:33 DC 10/06/24 20:41 2 MG Ondansetron HCl (zoFRAN 4MG INJ) 4 mg ONCE STAT IVP 10/06/24 18:06 10/06/24 18:09 DC 10/06/24 19:02 4 MG Ondansetron HCl (zoFRAN 4MG INJ) 4 mg Q6H PRN IV NAUSEA/VOMITING 10/06/24 22:30 11/05/24 22:29 Oxybutynin Chloride (oxyBUTYnin chloRIDE) 5 mg BID PO 10/09/24 21:00 11/08/24 20:59 10/11/24 09:44 5 MG Sodium Chloride 1,000 ml @ 125 mls/hr Q8H IV 10/06/24 22:30 10/09/24 16:56 DC 10/07/24 15:06 125 MLS/HR Sodium Chloride 1,000 ml @ 1,000 mls/hr Q1H STAT IV 10/06/24 18:06 10/06/24 19:05 DC 10/06/24 19:02 1,000 MLS/HR Tamsulosin HCl (FloMAX) 0.4 mg HS PO 5/11/25 21:00 11/06/24 20:59 10/10/24 21:05 0.4 MG DIAGNOSTICS / RADIOLOGY: [ ] ASSESSMENT: Obstructive ureterolithiasis per CT POA Suspected urinary tract infection POA Acute leukocytosis POA Hypothyroidism POA History of kidney stone POA PLAN: Obstructive ureterolithiasis -Patient admitted to medical surgical -NS @ 75 ml / hr x1 bag and re evaluate- Increased to 125 mL/hr. -Rocephin 1 g IV daily for empiric coverage. -Famotidine for GI prophylaxis -Electrolytes replaced as needed per protocol -Diet advanced- GI soft. Will advance as tolerated. -s/p functional study with IVP with tomograms. -s/p lithotripsy, cystoscopy, bilateral retrograde pyelography and placement of bilateral ureteric stents. -Dilaudid for pain management -Continue Oxybutynin. -Urology consulted- we will appreciate their recommendations. -Patient to be discharged today Case discussed with attending physician and came up with above treatment and plan of care. HU VALENZUELA MD October 11, 2024 10:44
[2024-10-11 11:11] VITALS: BP 132/79; PULSE 79; RESP 18; TEMP 98.7
[2024-10-11] MEDS ORDERED: TAMS-55 PO (11:43)
[2024-10-11] MEDS ORDERED: AMOX-426 PO (11:43)
[2024-10-11] MEDS ORDERED: OXYB5TAB20 PO (11:43)
--- NOTE | 2024-10-11 11:56 | DS ---
Discharge Summary Hospital Course Summary: Patient is a 54-year-old female with past medical history of SVT with cardiac ablation, hypothyroidism, and kidney stones who presented to the ED for complaints of left flank pain radiating to her left lower quadrant, along with chills and nausea. Labs in the ED were remarkable for WBC 14, neutrophils 84, hemoglobin 14, hematocrit 42, platelet count 281. Chloride 100, creatinine 1.1, GFR 60, lactic acid 0.9. Urinalysis significant with large occult blood, urine RBC 11-25, urine WBC 2-5. CT abdomen and pelvis without contrast result revealed urinary tract calculus causing obstruction. While in the ER patient received 1 L NS bolus, Zofran 4 mg IV, Toradol 15 mg IV, Rocephin 1 g IV and morphine 2 mg IV. The following morning, patients blood pressure is 92/56. IV fluid rate was increased, and her blood pressure stabilized. Urology was consulted for obstructive ureterolithiasis. Urology examined the patient, and a functional study with IVP with tomogram was done preformed. A lithotripsy, cystoscopy, bilateral retrograde pyelography and placement of bilateral ureteric stents. A Villatoro catheter was placed, and was removed the following morning. Patients pain was managed appropriately. The patient was deemed stable for discharge. 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 Procedure by ordering physician in operating room suite with fluoroscopic guidance. Several spot images were obtained. Impression: Fluoroscopic guidance. DICTATED BY: SULY TURNER MD DATE: 10/09/24 1602 ELECTRONICALLY SIGNED BY: SULY TURNER MD DATE: 10/10/24 1214 [facility] [address] [place], [place] [address] IMAGING REPORT Signed PATIENT: HILL TORRES MR#: [id number] : 1970 SEX: F AGE: 54 LOCATION: 4DH ORDER 2300 STATUS: ADM IN REPORT#: [id number] SERVICE 0800 REASON: KIDNEY STONES ORDERING PHYSICIAN: ENOC EVANS MD PROCEDURE: IVP - IVP W/WO TOMOGRAMS EXCRETORY UROGRAM WITH TOMOGRAMS Reason for exam: KIDNEY STONES. TECHNIQUE: Engineering Aide view of the abdomen obtained. Patient was then given 100 mL of Omnipaque 350 IV and sequential images of the abdomen obtained. FINDINGS: * Engineering Aide image demonstrates normal bowel gas pattern. Right lower pole calculus 14 mm. * Nephrotomograms demonstrate normal size, shape, and axis of the kidneys. There is temporal symmetry of enhancement. Collecting systems are normal, without filling defect. * Ureters are normal in course and caliber bilaterally. * Urinary bladder is normal. No extrinsic mass compression or filling defect noted. There is minimal postvoid residual. IMPRESSION: Normal excretory urogram with tomograms. Nonobstructing right nephrolithiasis lower pole. DICTATED BY: SULY TURNER MD DATE: 10/08/24 1045 ELECTRONICALLY SIGNED BY: SULY TURNER MD DATE: 10/08/24 1040 [facility] [address] [place] [address] [id number] IMAGING REPORT Signed PATIENT: HILL TORRES MR#: [id number] : 1970 SEX: F AGE: 54 LOCATION: [facility] ORDER 07 STATUS: REG ER REPORT#: [id number] SERVICE 05 REASON: LEFT FLANK PAIN, HX OF KIDNEY STONES ORDERING PHYSICIAN: BOBBI MEJÍA NP PROCEDURE: ABD PEL WO - CT ABDOMEN/PELVIS W/O CONTRAST CT ABDOMEN PELVIS WITHOUT CONTRAST Clinical Information: LEFT FLANK PAIN, HX OF KIDNEY STONES Comparison: CT Dose Index (CTDI): 28.40 mGy Dose Length Product (DLP): 1536.00 total mGy-cm PROTOCOL: Routine noncontrast helical scanning of the abdomen and pelvis was performed at 5mm collimation. Findings: There is a left ureterovesical junction calculus measuring 7 mm causing [id number] hydroureteronephrosis. In addition, there is a second smaller calculus of the left distal ureter measuring approximately 3 mm. The right kidney lower pole collecting system shows a nonobstructing calculus measuring 13 mm. The lung bases are clear. The stomach is unremarkable. It shows no wall thickening. No gross ulceration is seen. It is not overly distended. There are no surrounding inflammatory changes. No wall lesions are identified to suggest cancer. The spleen is unremarkable. It is not enlarged. The pancreas shows normal anatomy. It is not fatty replaced. It shows no lesions. The pancreatic duct is not dilated. The gallbladder is unremarkable. It shows no cholelithiasis. The gallbladder wall is normal in thickness. There is no pericholecystic fluid. The is no acute or chronic inflammation noted. The adrenal glands are unremarkable. There is no enlargement. No lesions are noted. The liver is unremarkable. It shows no focal masses. The appendix is unremarkable. It shows no evidence of inflammation. No appendicolith is seen. The small bowel is unremarkable. There is no evidence of dilatation to suggest obstruction. No evidence of adynamic ileus is seen. There is no small bowel wall thickening to suggest enteritis. The colon is unremarkable. The urinary bladder is unremarkable. There is no wall thickening to suggest tumor or inflammation. There are no intraluminal calculi. There are no diverticula. There is no evidence of chronic bladder outlet obstruction. There is no evidence of urinary bladder distention to suggest urinary retention. The other pelvic structures are unremarkable. The bony and vascular structures are unremarkable for the patient's age. IMPRESSION: Urinary tract calculus causing obstruction. This study was performed using dose reduction techniques to include automated exposure control and/or adjustment of the mA and/or kV according to patient size. DICTATED BY: SULY TURNER MD DATE: 10/06/241931 ELECTRONICALLY SIGNED BY: SULY TURNER MD DATE: 10/06/241941 OPERATIVE REPORT Name: HILL TORRES Acct: [id number] MR: [id number] : 1970 Admit Date: 10/06/24 ENOC EVANS MD [facility] [address] [place] [address], [place] [address] DATE OF PROCEDURE: 10/09/2024 PREOPERATIVE DIAGNOSES: * Right kidney stone measuring 11 x 9 mm. * Left distal ureteric stone measuring about 4 mm with left flank pain and left renal colic. PROCEDURES PERFORMED: * Right-sided extracorporeal shockwave lithotripsy 3000 shocks at 24 kV. * Cystoscopy, bilateral retrograde pyelography and placement of bilateral ureteric stents, 6-Georgian 26 cm double-J stents. POSTOPERATIVE DIAGNOSES: * Lower pole right kidney stone, 11 mm. * Distal ureteric stone, left side, obstructing and impacted, measuring 4 x 5 mm. SPECIMENS: None. DRAINS: 6-Georgian Villatoro catheter as well as bilateral ureteric stents. COMPLICATIONS: None. ANESTHESIA: General anesthesia. INDICATIONS FOR PROCEDURE: This is a 54-year-old female admitted to the hospital with left renal colic and identified on imaging studies to have distal ureteric stone on the left side and right-sided nonobstructive kidney stone on the right-hand side. The patient was managed conservatively initially, had IVP that showed no obstruction whatsoever in either right and left ureters and for that reason, no intervention outside of elective extracorporeal shockwave see as well as medical expulsive therapy for her left-sided kidney stone was planned. Within 36 hours, however, the patient developed left renal colic. The patient had previously been offered extracorporeal shockwave lithotripsy on her right hand side, which she has accepted to proceed with. However, prior to the commencement of a lithotripsy, the left renal colic began again. For that reason, after reviewing with the patient and her sister, the treatment plans were amended to include placement of left-sided double-J stents, possible ureteroscopy stone basketing, holmium laser lithotripsy on the left, and extracorporeal shockwave lithotripsy on the right hand side where she has a large stone and have a stent placement on that side as well. Risks, benefits, and alternatives were discussed with the patient and as such, she understood, did provide fully informed consent and requested procedure to be performed. FINDINGS: Bladder neck and urethra coapted well, but the mucosa is smooth. No tumors, no stones that were identified. The KUB did show an 11 mm lower pole kidney stone on the right and ureteroscopy was begun, but could not be terminated or completed primarily because of the extremely narrow intramural ureter and a concern for iatrogenic injury. For that reason, ureteroscopy was terminated prior to being able to encounter the impacted stone. DESCRIPTION OF PROCEDURE: The additional procedure was duly identified. Informed consent was confirmed. Time was taken. She was brought to the lithotripsy suite, was placed supine on lithotomy gurney. After adequate hemodynamic monitoring had been established by Anesthesiology, the patient underwent smooth induction of general anesthesia by Anesthesiology. Next, a C-arm was then brought into the field. A stone on the right hand side was identified and then the shock was brought to her flank on the right hand side and extracorporeal shockwave lithotripsy was then performed, 3000 shocks 24 kV until the stone appeared to fragment completely and disappeared from a fluoroscopy screen. Having completed a treatment of her kidney stone, the patient was then carefully moved from the lithotripsy suite to the cystoscopy suite where she was placed in a dorsal lithotomy position. Her genitalia were thoroughly prepped and draped in sterile fashion and rigid cystourethroscope was performed with the findings as above. Open-ended ureteric catheter was utilized to intubate the right ureteral orifice with 0.035 inch Glidewire was advanced up the renal pelvis on the right side. The ureteric catheter went all the way up to the renal pelvis. [place] dip was obtained. Retrograde pyelogram shows no extravasation. Wire was introduced up the ureteric catheter and the catheter was exchanged out and over the wire through the cystoscope was advanced a 6-Georgian 24 cm double-J up to the renal pelvis on the right side. The wire was removed with a satisfactory curl in the renal pelvis above and bladder below. Identical procedure was then performed on the left hand side. Access was obtained with an open-ended ureteric catheter. The ureteral orifice appeared more capacious. A wire was advanced up the renal pelvis. The ureteric catheter was removed and a rigid ureteroscope 7-Georgian was then brought into the field; however, it was not possible for the 7-Georgian scope to be advanced into the intramural portion of the ureter completely. Stone was impacted at that location and in order to avoid undue trauma, I elected at this stage to terminate the procedure and stage it by placing ureteric catheter there for a few days, possibly a week before returning at a later date with passive dilation having been achieved. For that reason, the wire was maintained in place back to the cystoscope and over the wire was advanced from the left side. [place] dip was obtained. Once the wire was removed, sent for culture. The retrograde pyelogram showed extravasation. Wire was introduced up the ureteric catheter. The ureteric catheter was exchanged out. The wire was back to the cystoscope and over the wire, ureteroscope was advanced. A 6-Georgian 26 cm double-J stent as well on that side. Wire was removed with satisfactory curl in renal pelvis above and bladder below. With stents both on the right and left sides, the bladder was now left half full. Instruments were now carefully removed under direct vision and a 16-Georgian Villatoro catheter was placed in the bladder with efflux of clear urine. KUB confirmed good position of both stents. The patient was now awakened from anesthesia and was now transported from operating room to recovery room in good, stable and hemodynamically satisfactory condition having experienced no complications. PLAN: The patient will be discharged within the next 24 hours provided if she meets all criteria. Follow up in my office later this week and plan for elective ureteroscopy of the left distal ureteric stone in about a week or so electively after passive dilation of ureter has been achieved with a double-J stent and likely removal of her right-sided double-J stent if all fragments of her lithotripsy treatment of her stone have all passed by that time. No complications. TID: [id number] RECEIPT: [id number] Electronically Signed by: Electronically Co-Signed by: RUN DATE: 10/09/24 [facility] PAGE 1 RUN TIME: [address] [address], [place] [address] Department of [employer] [facility] # [id number] Wood Furniture Assembler: Brandon Beck DO Specimen Report PATIENT: HILL TORRES ACCT: [id number] LOC: 4DH U: [id number] AGE/SX: 54/F ROOM: [facility] RE10/06/[address]: ALEXIS OTERO MD : 1970 BED: 1 DIS: STATUS: ADM IN TLOC: SPEC: [id number] FLACO: 10/09/24-153 STATUS: RES REQ: [id number] RECD: 10/09/24-[address] [facility] [address]: ENOC EVANS MD SOURCE: KIDNEY ENTR: 10/09/24-[address] [facility] [address]: [facility]LEX[facility] ORDERED: TANIA CULTURE, BODY FLUID CULT COMMENTS: Comment: LEFT KIDNEY URINE Has specimen been collected/obtained? Y Procedure Result Jj Date-Time GRAM STAIN Final 10/09/24-1814 NO ORGANISM SEEN 1+ WHITE BLOOD CELLS ANAEROBIC CULTURE PENDING REPORT BODY FLUID CULT PENDING END OF REPORT RUN DATE: 10/10/24 [facility] PAGE 1 RUN TIME: [phone] [address], [place] [address] Department of Laboratories CLIA # [id number] Wood Furniture Assembler: Brandon Beck DO Specimen Report PATIENT: HILL TORRES ACCT: [id number] LOC: [facility] U: [id number] AGE/SX: 54/F ROOM: [facility] RE10/06/[address]: ALEXIS OTERO MD : 1970 BED: 1 DIS: STATUS: ADM IN TLOC: SPEC: [id number] FLACO: 10/06/24 STATUS: RES REQ: [id number] RECD: 10/06/[address]: BOBBI MEJÍA NP SOURCE: BLOOD ENTR: 10/06/24-[address]: ALTHEA [facility]: BENITA COLLINS ORDERED: BLOOD CULTURE COMMENTS: What is the Source? BLOOD Procedure Result Jj Date-Time -- BLOOD CULT Preliminary 10/10/24-2257 NO GROWTH AFTER 4 DAYS RUN DATE: 10/10/24 [facility] PAGE 1 RUN TIME: [address] [address], [place] [address] Department of Laboratories [facility] # [id number] Wood Furniture Assembler: Brandon Beck DO Specimen Report PATIENT: HILL TORREST: [id number] LOC: 4D U: [id number] AGE/SX: 54/F ROOM: 428 RE10/06/[address]: ALEXIS OTERO MD : 1970 BED: 1 DIS: STATUS: ADM IN TLOC: SPEC: [id number] FLACO: 10/06/24 STATUS: RES REQ: [id number] RECD: 10/06/[address]: BOBBI MEJÍA NP SOURCE: BLOOD ENTR: 10/06/[address] ORDERED: BLOOD CULTURE COMMENTS: What is the Source? BLOOD Procedure Result Jj Date-Time BLOOD CULT Preliminary 10/10/24 NO GROWTH AFTER 4 DAYS END OF REPORT END OF REPORT Assessment/Plan: ASSESSMENT: Obstructive ureterolithiasis per CT POA Suspected urinary tract infection POA Acute leukocytosis POA Hypothyroidism POA History of kidney stone POA Discharge Instructions: Follow up appointments: Patient to follow up with urologist, Dr. Evans within 1 week upon discharge. Patient to follow up with PCP within 1 week upon discharge. Procedures: Right-sided extracorporeal shockwave lithotripsy 3000 shocks at 24 kV. Cystoscopy, bilateral retrograde pyelography and placement of bilateral ureteric stents, 6-Georgian 26 cm double-J stents. Imaging: Report attached to summary Microbiology: report attached to summary Activity: Ad daniella Home medications: continued New medications: Augmentin, Flomax, Oxybutynin. Teaching: We reinforced the importance of compliance with follow-up appointments and medication compliance. Advised patient to follow up with Urologist, Dr. Evans upon discharge. Emergency instructions: Patient was instructed to present to the nearest Emergency Department or call 911 should their symptoms return or worsen. Home Medications: Reported Medications Cholecalciferol (Vitamin D3) (Vitamin D3) 125 Mcg (5000 Unit) Capsule, 1 CAP PO DAILY for 30 Days, #30 CAP 0 Refills 10/06/24 Levothyroxine Sodium (Levothyroxine) 50 Mcg Capsule, 1 CAP PO DAILY for 30 Days, #30 CAP 0 Refills 10/06/24 Discontinued Reported Medications [vitamin D3] No Conflict Check 11/14/18 Diltiazem HCl (Diltiazem ER) 120 Mg Capsule.er, 120 MG PO DAILY, CAP 11/14/18 Discontinued Scripts Tramadol Hcl (Tramadol HCl) 50 Mg Tablet, 50 MG PO Q6H, #28 TAB Prov:DALTON SEGURA MD 05/06/24 Tamsulosin HCl (Flomax) 0.4 Mg Cap.er.24h, 0.4 MG PO DAILY for 30 Days, #30 CAPSULE. Prov:DALTON SEGURA MD 05/06/24 New Medications: Amoxicillin/Potassium Clav (Augmentin 500-125 Tablet) 500 Mg-125 Mg Tablet 1 TAB PO BID for 7 Days, #14 TAB 0 Refills Oxybutynin Chloride (Oxybutynin Chloride) 5 Mg Tablet 5 MG PO BID for 14 Days, #28 TAB Tamsulosin HCl (Flomax) 0.4 Mg Cap.er.24h 0.4 MG PO HS for 14 Days, #14 CAPSULE.DR Continued Medications: Cholecalciferol (Vitamin D3) (Vitamin D3) 125 Mcg (5000 Unit) Capsule 1 CAP PO DAILY for 30 Days, #30 CAP 0 Refills Levothyroxine Sodium (Levothyroxine) 50 Mcg Capsule 1 CAP PO DAILY for 30 Days, #30 CAP 0 Refills HU VALENZUELA MD October 11, 2024 11:56
--- NOTE | 2024-10-11 13:34 | NUR ---
PATIENT DISCHARGED PERIPHERAL IV DISCONTINUED WITHOUT COMPLICATIONS. CATHETER INTACT. DISCHARGE INSTRUCTIONS GIVEN. PRESCRIPTIONS SENT TO PHARMACY. PATIENT AWARE TO F/U WITH PCP. PATIENT TO SCHEDULE F/U. PATIENT AWARE TO F/U WITH DR. EVANS 10/18. ALL QUESTIONS ANSWERED.
== END 2024-10-11 13:30 | disposition home or self-care (01) | DRG 660 ==
LOC: EDH 17:31 → EDHIP 22:12 → 4DH 23:39
PROVIDERS: ADMIT Internal Medicine; ATTEND Internal Medicine
PROC: BT141ZZ Fluoroscopy of Kidneys, Ureters and Bladder using Low Osmolar Contrast (ICD-10-PCS; principal; 2024-10-09 13:50)
PROC: 0T788DZ Dilation of Bilateral Ureters with Intraluminal Device, Via Natural or Artificial Opening Endoscopic (ICD-10-PCS; 2024-10-09 13:50)
PROC: 0TF6XZZ Fragmentation in Right Ureter, External Approach (ICD-10-PCS; 2024-10-09 13:50)
DX: N13.6 Pyonephrosis (principal); I47.10 Supraventricular tachycardia, unspecified; E03.9 Hypothyroidism, unspecified; R42 Dizziness and giddiness; I95.9 Hypotension, unspecified; D72.829 Elevated white blood cell count, unspecified; Z87.898 Personal history of other specified conditions; Z82.49 Family history of ischemic heart disease and other diseases of the circulatory system; Z83.3 Family history of diabetes mellitus; Z90.710 Acquired absence of both cervix and uterus; Z90.49 Acquired absence of other specified parts of digestive tract
CPT/HCPCS: 36415; 74176; 74400; 74420; 80048; 80053; 81001; 83605; 83735; 85025; 85027; 85651; 86140; 87040; 87071; 87076; 87205; 96361; 96374; 96375; 99285; A4344; C1758; G0378; J0696; J1100; J1171; J1885; J2003; J2250; J2270; J2405; J2704; J3010; J3475; J3490; J7120; Q9967; A4216; A4222; A4223; A4358; A4600; A4930; C1769; C2617

== ENCOUNTER → 2024-10-18 | Outpatient (CLI) | payer SELFPAY ==
[~2024-10-18] MED LIST changes: +AMOX-426 PO; +CHOL500051 PO; -DILT120C78 PO; +LEVO50CA5 PO; +OXYB5TAB20 PO; -TRAM50TA4 PO; -vitamin D3
--- NOTE | 2024-10-18 12:19 | HMCIMG ---
TOMOGRAM REASON: CALCULUS OF KIDNEY. COMPARISON: CT from October 06, 2024 TECHNIQUE: Tomogram of the kidneys were obtained. FINDINGS: There are bilateral ureteral stents. Multiple right renal pelvic stones are seen appears to be fragmented support representative change form previous CT study. Clinical correlation is recommended. IMPRESSION: Findings as described above.
--- NOTE | 2024-10-18 12:21 | HMCIMG ---
ABD 1VW HISTORY: Renal stone COMPARISON: None FINDINGS: A frontal projection of the abdomen was obtained. A nonspecific bowel gas pattern is seen. Fecal material is seen in the colon. Bilateral ureteral stents are seen. Tiny right renal pelvic stones are seen. There is left distal ureter stone measuring 5 mm in longitudinal dimension. IMPRESSION: 1. A nonspecific bowel gas pattern is seen. Right renal pelvic stones and left distal ureter stone.
== END | disposition home or self-care (01) ==
LOC: RAH 11:02
PROVIDERS: ATTEND Urology
DX: N20.0 Calculus of kidney (principal); N20.2 Calculus of kidney with calculus of ureter; R19.5 Other fecal abnormalities
CPT/HCPCS: 74018; 76100